=== PATIENT | female | born 1945 | race Caucasian/White ===

== ENCOUNTER 2025-05-20 12:33 | Inpatient (IN) | payer OTHER ==
[~2025-05-20] VITALS: Ht 162.6 cm; Wt 79.5 kg
--- NOTE | 2025-05-20 13:03 | ED.PDOC ---
History of Present Illness HPI Comments This is a 84 year old female ELIEA presenting to the ED with chief complaint of fall and generalized weakness. EMS reports that the patient had reportedly fell in her home 4 days ago, being unable to get up on her own due to weakness. EMS relays that the patient's daughter then called her today to check in with the patient, however, she was told that she had fallen and been on the floor, so 911 was called for assistance. Patient notes she has a full body rash at this time due to having history of contact dermatitis. Patient denies any chest pain, SOB, dizziness, N/V/D, or abdominal pain. Chief Complaint: Fall Injury Time Seen by MD: 13:01 Reviewed Notes: Nurses Notes, Audiovisual Technician Notes, Medications, Allergies Allergies: Coded Allergies: Diphenhydramine (Verified Allergy, Unknown, 05/20/25) Penicillins (Verified Allergy, Unknown, 05/20/25) Information Source: Patient, Emergency Med Personnel Mode of Arrival: EMS Severity: Moderate Timing: Days Duration: Since onset Prehospital treatment: None Past Medical History Past Medical History (Other): Contact dermatitis Surgical History: Denies all surgeries RN ANESTHESIOLOGY History: Denies all RN ANESTHESIOLOGY Hx Family History Family History: Reviewed,noncontributory to illness Social History Smoker: Non-Smoker Alcohol: Denies ETOH Use Drugs: Denies Drug Use Lives In: Home Constitutional: reports: weakness; denies: chills, diaphoresis, fatigue, fever, malaise, sweats, others EENTM: denies: blurred vision, double vision, ear bleeding, ear discharge, ear drainage, ear pain, ear ringing, eye pain, eye redness, hearing loss, mouth pain, mouth swelling, nasal discharge, nose bleeding, nose congestion, nose pain, photophobia, tearing, throat pain, throat swelling, voice changes, others Respiratory: denies: cough, hemoptysis, orthopnea, SOB at rest, shortness of breath, SOB with excertion, stridor, wheezing, others Cardiovascular: denies: chest pain, dizzy spells, diaphoresis, Dyspnea on e xertion, edema, irregular heart beat, left arm pain, lightheadedness, palpitations, PND, syncope, others Gastrointestinal: denies: abdomen distended, abdominal pain, blood streaked bowels, constipated, diarrhea, dysphagia, difficulty swallowing, hematemesis, melena, nausea, poor appetite, poor fluid intake, rectal bleeding, rectal pain, vomiting, others Genitourinary: denies: abnormal vagina bleeding, burning, dyspareunia, dysuria, flank pain, frequency, hematuria, incontinence, pain, , vagina discharge, urgency, others Neurological: denies: dizziness, fainting, headache, left sided numbness, left sided weakness, numbness, paresthesia, pre-existing deficit, right sided numbness, right sided weakness, seizure, speech problems, tingling, tremors, weakness, others Musculoskeletal: denies: back pain, gout, joint pain, joint swelling, muscle pain, muscle stiffness, neck pain, others Integumetry: reports: rash; denies: bruises, change in color, change in hair/nails, dryness, laceration, lesions, lumps, wounds, others Allergic/Immunocompromised: denies: Difficulty Healing, Frequent Infections, Hives, Itching, others Hematologic/Lymphatic: denies: anemia, blood clots, easy bleeding, easy bruising, swollen glands, others Endocrine: denies: excessive hunger, excessive sweating, excessive thirst, excessive urination, flushing, intolerance to cold, intolerance to heat, unexplained weight gain, unexplained weight loss, others Psychiatric: denies: anxiety, bipolar disorder, depression, hopeless, panic disorder, schizophrenia, sleepless, suicidal, others All Other Systems: Reviewed and Negative Physical Exam General Appearance: Moderate Distress, Normal HEENT: Normal ENT Inspection, Pharynx Normal, TMs Normal Neck: Full Range of Motion, Non-Tender, Normal, Normal Inspection Respiratory: Chest Non-Tender, Lungs Clear, No Accessory Muscle Use, No Respiratory Distress, Normal Breath Sounds Cardiovascular: No Edema, No JVD, No Murmur, No Gallop, Normal Peripheral Pulses, Regular Rate/Rhythm Breast Exam: Deferred Gastrointestinal: No Organomegaly, Non Tender, No Pulsatile Mass, Normal Bowel Sounds, Soft Genitalia: Deferred Pelvic: Deferred Rectal: Deferred Extremities: No calf tenderness, Normal capillary refill, Non-tender, Pedal edema Musculoskeletal : Apperance: Normal Neurologic: Alert, cam maker II-XII nml as Tested, No Motor Deficits, Normal Affect, Normal Mood, No Sensory Deficits Cerebellar Function: NOT DONE Reflexes: NOT DONE Skin: Dry, Normal Color, Rash (Contact dermatitis all over her body), Warm Peripheral Pulses: 3+ Radial (R), 3+ Radial (L) Lymphatic: No Adenopathy Was a procedure done? Was a procedure done?: No Differential Dx Considerations may include: Rhabdomyolysis Electrolyte imbalance X-Ray, Labs, Meds, VS Vital Signs Date Time Temp Pulse Resp B/P (MAP) Pulse Ox O2 Delivery O2 Flow Rate FiO2 05/20/25 12:40 99.7 107 15 142/73 99 99.7 Lab Test 05/20/25 13:47 Range/Units White Blood Count 12.1 H 4.4-10.8 10^3/uL Red Blood Count 4.08 4.0-5.20 10^6/uL Hemoglobin 12.6 12.2-16.2 g/dL Hematocrit 37.1 36.0-46.0 % Mean Corpuscular Volume 91.1 80.0-100.0 fL Mean Corpuscular Hemoglobin 30.8 28.0-32.0 pg Mean Corpuscular Hemoglobin Concent 33.8 32.0-36.0 g/dL Red Cell Distribution Width 14.0 11.8-14.3 % Platelet Count 272 140-450 10^3/uL Mean Platelet Volume 7.2 6.9-10.8 fL Neutrophils (%) (Auto) 77.8 37.0-80.0 % Lymphocytes (%) (Auto) 8.2 L 10.0-50.0 % Monocytes (%) (Auto) 11.7 0.0-12.0 % Eosinophils (%) (Auto) 2.1 0.0-7.0 % Basophils (%) (Auto) 0.2 0.0-2.0 % Neutrophils # (Auto) 9.4 H 1.6-8.6 10 ^3/uL Lymphocytes # (Auto) 1.0 0.4-5.4 10 ^3/uL Monocytes # (Auto) 1.4 H 0-1.3 10 ^3/uL Eosinophils # (Auto) 0.3 0-0.8 10 ^3/uL Basophils # (Auto) 0 0-0.2 10 ^3/uL Nucleated Red Blood Cells 0.0 % Sodium Level 140 136-145 mmol/L Potassium Level 3.7 3.5-5.1 mmol/L Chloride Level 102 98-107 mmol/L Carbon Dioxide Level 29 20-31 mmol/L Anion Gap 9 5-15 Blood Urea Nitrogen 10 9-23 mg/dL Creatinine 0.71 0.550-1.02 mg/dL Glomerular Filtration Rate Calc 85 >90 mL/min BUN/Creatinine Ratio 14.1 10.0-20.0 Serum Glucose 145 H 74-106 mg/dL Calcium Level 8.4 L 8.7-10.4 mg/dL Creatine Kinase 3023 H 34-145 U/L Troponin I High Sensitivity 10 </=34 ng/L Patient alert. Vitals stable. Been on the floor for a long time. Answering all questions. Rule out rhabdomyolysis. Establish intravenous access. Was given fluids. Denies any symptoms. Explained to the patient. Continue monitoring. Time of 1ST Reevaluation: 14:00 Reevaluation 1ST: Unchanged Patient Education/Counseling: Diagnosis, Treatment Family Education/Counseling: No Family Present SEPSIS Sepsis Screen Physician Orders Urinalysis (05/20/25 13:17) Sodium Chloride 0.9% (05/20/25 13:30) Sodium Bicarb 50meq/50ml Vial (05/20/25 15:00) Vital Signs Date Time Temp Pulse Resp B/P (MAP) Pulse Ox O2 Delivery O2 Flow Rate FiO2 05/20/25 12:40 99.7 107 15 142/73 99 99.7 Laboratory Tests Test 05/20/25 13:47 White Blood Count 12.1 10^3/uL (4.4-10.8) H Departure 1 Departure Time of Disposition: 13:52 Impression: Primary Impression: Rhabdomyolysis Qualified Codes: M62.82 - Rhabdomyolysis Additional Impression: Contact dermatitis Qualified Codes: L25.9 - Unspecified contact dermatitis, unspecified cause Disposition: 09 ADMITTED INPATIENT Admit to: Med Surg Condition: Guarded Critical Care Note Critical Care Time?: Yes (90 min-critical care time only) Critical care comment: Sodium bicarbonate Stability Stability form required: No Heart Score Heart Score: Heart Score Response (Comments) Value History N/A 0 EKG N/A 0 Age N/A 0 Risk Factors N/A 0 Troponin N/A 0 Total 0 I personally scribed for MICHELLE MARIN MD ([email or web address]) on 05/20/25 at 13:03. Electronically submitted by Jose Antonio Yeung ([email or web address]). MICHELLE MARIN MD May 20, 2025 13:03
[2025-05-20 14:05] LABS: Hematocrit 37.1 % (36.0-46.0); Hemoglobin 12.6 g/dL (12.2-16.2); Mean Corpuscular Hemoglobin 30.8 pg (28.0-32.0); Mean Corpuscular Volume 91.1 fL (80.0-100.0); Nucleated Red Blood Cells % 0.0 %
[2025-05-20 14:10] LABS: Chloride 102 mmol/L (98-107); Potassium 3.7 mmol/L (3.5-5.1); Sodium 140 mmol/L (136-145)
[2025-05-20 14:11] LABS: Anion Gap 9 (5-15); Carbon Dioxide 29 mmol/L (20-31)
[2025-05-20 14:16] LABS: BUN/Creatinine Ratio 14.1 (10.0-20.0); Blood Urea Nitrogen 10 mg/dL (9-23)
[2025-05-20 14:17] LABS: Calcium 8.4 mg/dL (8.7-10.4); Glucose 145 mg/dL (74-106)
[2025-05-20 14:30] LABS: Creatine Kinase IFCC 3023 U/L (34-145)
[2025-05-20] MEDS: SODIUM BICARB 8.4% 50Meq/50ml SYR Vial IV ONE (15:00)
[2025-05-20] MEDS ORDERED: MORPHINE SULFATE INJ 2 MG/ml SYRG IV PRN (18:00)
[2025-05-20] MEDS ORDERED: NITROGLYCERIN 0.4 MG SL TAB SL PRN (18:00)
[2025-05-20] MEDS ORDERED: ONDANSETRON HCL 4 MG/2 ML VIAL IV PRN (18:00)
[2025-05-20] MEDS: SODIUM CHLORIDE 0.9% 1,000 ML IV SCH (18:15)
--- NOTE | 2025-05-20 20:32 | DVH ---
BILATERAL LOWER EXTREMITY VENOUS DOPPLER ULTRASOUND CLINICAL HISTORY: LE edema TECHNIQUE: Grayscale ultrasound with compression, color Doppler flow imaging with pulsed duplex sonog jona of the bilateral lower extremity deep venous system from the common femoral veins through the p opliteal veins is performed. COMPARISON: None FINDINGS: Right common femoral vein: Negative. Right greater saphenous vein: Negative. Right deep femoral vein: Negative. Right femoral vein: Negative. Right popliteal vein: Negative. Left common femoral vein: Negative. Left greater saphenous vein: Negative. Left deep femoral vein: Negative. Left femoral vein: Negative. Left popliteal vein: Negative. Other: Visualized bilateral popliteal trifurcation and posterior tibial veins demonstrate color flow. IMPRESSION: No sonographic evidence of deep venous thrombosis in either lower extremity at this time.
[2025-05-20 23:08] VITALS: PULSE 96; RESP 16; O2SAT 95
[2025-05-20] MEDS: diphenhdrAMINE HCL 50 MG/1 ML VL IV ONE (23:13)
[2025-05-20] MEDS: SODIUM CHLORIDE 0.9% 1,000 ML IV ONE ×2 (23:14→23:23)
--- NOTE | 2025-05-20 23:21 | DVHINCON2 ---
Date of service: May 20, 2025 Referring Physician Rogelio Reason for Consultation LE edema History of Present Illness This is a 79 year old female with a PMH of contact dermatitis who was brought in by EMS with complaints of fall and generalized weakness. EMS reports that the patient had reportedly fell in her home 4 days ago, being unable to get up on her own due to weakness. EMS relays that the patient's daughter then called her today to check in with the patient, however, she was told that she had fallen and been on the floor, so 911 was called for assistance. Patient notes she has a full body rash at this time due to having history of contact dermatitis. WBC 12.1, creatinine kinase 3023. Troponin is negative. Patient was admitted to the hospital. I am asked to consult on this patient. Allergies: Coded Allergies: Diphenhydramine (Verified Allergy, Unknown, 05/20/25) Penicillins (Verified Allergy, Unknown, 05/20/25) Current Medications Current Medications Medications (Trade) Dose Ordered Sig/Karmen Route PRN Reason Start Time Stop Time Status Last Admin Acetaminophen (Tylenol Tablet) 325 mg Q4HP PRN PO MILD PAIN (1-3 PAIN SCALE) 05/20/25 18:00 Ondansetron HCl (Zofran) 4 mg Q4HP PRN IV NAUSEA / VOMITING 05/20/25 18:00 Enoxaparin Sodium (Lovenox) 40 mg DAILY SC 05/21/25 10:00 Nitroglycerin (Ntrostat Sublingual) 0.4 mg Q5MINP PRN SL FOR CHEST PAIN 05/20/25 18:00 Morphine Sulfate 2 mg Q30M PRN IV FOR CHEST PAIN 05/20/25 18:00 Methylprednisolone Sodium Succinate (Solu Medrol) 125 mg DAILY IV 05/21/25 10:00 Sodium Chloride 1,000 ml @ 75 mls/hr [id number] IV 05/20/25 18:15 Review of Systems Constitutional: reports: weakness; denies: chills, diaphoresis, fatigue, fever, malaise, sweats, others EENTM: denies: blurred vision, double vision, ear bleeding, ear discharge, ear drainage, ear pain, ear ringing, eye pain, eye redness, hearing loss, mouth pain, mouth swelling, nasal discharge, nose bleeding, nose congestion, nose pain, photophobia, tearing, throat pain, throat swelling, voice changes, others Respiratory: denies: cough, hemoptysis, orthopnea, SOB at rest, shortness of breath, SOB with excertion, stridor, wheezing, others Cardiovascular: denies: chest pain, dizzy spells, diaphoresis, Dyspnea on exertion, edema, irregular heart beat, left arm pain, lightheadedness, palpitations, PND, syncope, others Gastrointestinal: denies: abdomen distended, abdominal pain, blood streaked bowels, constipated, diarrhea, dysphagia, difficulty swallowing, hematemesis, melena, nausea, poor appetite, poor fluid intake, rectal bleeding, rectal pain, vomiting, others Genitourinary: denies: abnormal vagina bleeding, burning, dyspareunia, dysuria, flank pain, frequency, hematuria, incontinence, pain, , vagina discharge, urgency, others Neurological: denies: dizziness, fainting, headache, left sided numbness, left sided weakness, numbness, paresthesia, pre-existing deficit, right sided numbness, right sided weakness, seizure, speech problems, tingling, tremors, weakness, others Musculoskeletal: denies: back pain, gout, joint pain, joint swelling, muscle pa in, muscle stiffness, neck pain, others Integumetry: reports: rash; denies: bruises, change in color, change in hair/nails, dryness, laceration, lesions, lumps, wounds, others Allergic/Immunocompromised: denies: Difficulty Healing, Frequent Infections, Hives, Itching, others Hematologic/Lymphatic: denies: anemia, blood clots, easy bleeding, easy bruising, swollen glands, others Endocrine: denies: excessive hunger, excessive sweating, excessive thirst, excessive urination, flushing, intolerance to cold, intolerance to heat, un explained weight gain, unexplained weight loss, others Psychiatric: denies: anxiety, bipolar disorder, depression, hopeless, panic disorder, schizophrenia, sleepless, suicidal, others All Other Systems: Reviewed and Negative Vital Signs Vital Signs Date Time Temp Pulse Resp B/P (MAP) Pulse Ox O2 Delivery O2 Flow Rate FiO2 05/20/25 23:08 96 16 95 Room Air* 0 21 05/20/25 23:01 98.8 126/70 (88) 98.8 Physical Exam GENERAL: Alert and oriented x 3. No acute distress. EYES: PERRL, EOMI. Anicteric. HENT: Moist mucous membranes. LUNGS: Clear to auscultation bilaterally. CARDIOVASCULAR: Regular rate and rhythm. ABDOMEN: Soft, non-tender and non-distended. EXTREMITIES: BLE edema. NEUROLOGIC: No focal neurological deficits. SKIN: Warm, dry. Contact dermatitis all over her body. Labs/Diagnostic Data Labs Test 05/20/25 13:47 Range/Units White Blood Count 12.1 H 4.4-10.8 10^3/uL Red Blood Count 4.08 4.0-5.20 10^6/uL Hemoglobin 12.6 12.2-16.2 g/dL Hematocrit 37.1 36.0-46.0 % Mean Corpuscular Volume 91.1 80.0-100.0 fL Mean Corpuscular Hemoglobin 30.8 28.0-32.0 pg Mean Corpuscular Hemoglobin Concent 33.8 32.0-36.0 g/dL Red Cell Distribution Width 14.0 11.8-14.3 % Platelet Count 272 140-450 10^3/uL Mean Platelet Volume 7.2 6.9-10.8 fL Neutrophils (%) (Auto) 77.8 37.0-80.0 % Lymphocytes (%) (Auto) 8.2 L 10.0-50.0 % Monocytes (%) (Auto) 11.7 0.0-12.0 % Eosinophils (%) (Auto) 2.1 0.0-7.0 % Basophils (%) (Auto) 0.2 0.0-2.0 % Neutrophils # (Auto) 9.4 H 1.6-8.6 10 ^3/uL Lymphocytes # (Auto) 1.0 0.4-5.4 10 ^3/uL Monocytes # (Auto) 1.4 H 0-1.3 10 ^3/uL Eosinophils # (Auto) 0.3 0-0.8 10 ^3/uL Basophils # (Auto) 0 0-0.2 10 ^3/uL Nucleated Red Blood Cells 0.0 % Sodium Level 140 136-145 mmol/L Potassium Level 3.7 3.5-5.1 mmol/L Chloride Level 102 98-107 mmol/L Carbon Dioxide Level 29 20-31 mmol/L Anion Gap 9 5-15 Blood Urea Nitrogen 10 9-23 mg/dL Creatinine 0.71 0.550-1.02 mg/dL Glomerular Filtration Rate Calc 85 >90 mL/min BUN/Creatinine Ratio 14.1 10.0-20.0 Serum Glucose 145 H 74-106 mg/dL Calcium Level 8.4 L 8.7-10.4 mg/dL Creatine Kinase 3023 H 34-145 U/L Troponin I High Sensitivity 10 </=34 ng/L Assessment Rhabdomyolysis. Contact dermatitis. BLE edema. Plan/Recommendation I agree with your ongoing assessment and care of plan. Echocardiogram. DVT prophylactics. Nitro SL. Morphine for pain management. Additional plan as per the hospital course. A total of 45 minutes was spent reviewing the patient record, examining the patient, making a diagnostic and therapeutic plan, discussing this plan with medical personnel, following up on diagnostic studies and following the patient for clinical stability excluding any and all procedures. At least 50% of this time was spent in direct, [id number] contact. Plan discussed with: Patient CRISTOPHER ESPAÑA MD May 20, 2025 23:21
[2025-05-21] VITALS (8 sets, daily range): BP systolic 110–154; BP diastolic 58–89; PULSE 78–100; RESP 17–20; TEMP 97.8–98.7; O2SAT 93–98
[2025-05-21] MEDS: methylPREDNISolone SOD SUCC 125 MG/2 ML VL IV ONE (02:06)
[2025-05-21 07:04] LABS: Hematocrit 35.9 % (36.0-46.0); Hemoglobin 12.2 g/dL (12.2-16.2); Mean Corpuscular Hemoglobin 31.4 pg (28.0-32.0); Mean Corpuscular Volume 92.0 fL (80.0-100.0)
[2025-05-21 07:14] LABS: Albumin 3.4 g/dL (3.2-4.8); Alkaline Phosphatase 63 U/L (46-116); Anion Gap 10 (5-15); BUN/Creatinine Ratio 22.8 (10.0-20.0); Bilirubin, Total 0.7 mg/dL (0.2-1.0); Blood Urea Nitrogen 18 mg/dL (9-23); Carbon Dioxide 29 mmol/L (20-31); Chloride 103 mmol/L (98-107); Potassium 4.3 mmol/L (3.5-5.1); Sodium 142 mmol/L (136-145)
[2025-05-21 07:24] LABS: Alanine Aminotransferase 77 U/L (7-40); Calcium 8.5 mg/dL (8.7-10.4); Glucose 258 mg/dL (74-106); Total Protein 5.6 g/dL (5.7-8.2)
[2025-05-21 08:42] LABS: Total Cells Counted 100.0 (100)
--- NOTE | 2025-05-21 09:06 | DVHHP2 ---
Admitting Diagnosis: Rhabdomyolysis History of Present Illness Patient is a 79-year-old female with no established medical care who was brought in after being found down by paramedics in her house. Patient was apparently down for approximately 3 to 4 days. History was also obtained from the daughter who notes that she is estranged from her mother and notes that the patient lives alone. Patient had bedside is alert able to engage in history but complains of significant weakness. She has a whole body rash that is red and notes that this has been present for more than a month. She has not seek medical attention for this issue. Patient presented with vitals within normal limits. CBC was notable for leukocytosis of 12.1 with chemistry panel notable for CK of 3023. Renal function was within normal limits. Patient was started on IV fluid h ydration and steroids for her rash. She was admitted for further medical management. Patient Family History: FH: lung cancer G8 MOTHER Malignant melanoma G8 FATHER Allergies: Coded Allergies: Diphenhydramine (Verified Allergy, Unknown, 05/20/25) Penicillins (Verified Allergy, Unknown, 05/20/25) Home Meds No Active Prescriptions or Reported Meds Current Medications Current Medications Medications (Trade) Dose Ordered Sig/Karmen Route PRN Reason Start Time Stop Time Status Last Admin Acetaminophen (Tylenol Tablet) 325 mg Q4HP PRN PO MILD PAIN (1-3 PAIN SCALE) 05/20/25 18:00 05/21/25 10:11 Ondansetron HCl (Zofran) 4 mg Q4HP PRN IV NAUSEA / VOMITING 05/20/25 18:00 Enoxaparin Sodium (Lovenox) 40 mg DAILY SC 05/21/25 10:00 Nitroglycerin (Ntrostat Sublingual) 0.4 mg Q5MINP PRN SL FOR CHEST PAIN 05/20/25 18:00 Morphine Sulfate 2 mg Q30M PRN IV FOR CHEST PAIN 05/20/25 18:00 Methylprednisolone Sodium Succinate (Solu Medrol) 125 mg DAILY IV 05/21/25 10:00 05/21/25 10:10 Sodium Chloride 1,000 ml @ 75 mls/hr [id number] IV 05/20/25 18:15 05/20/25 18:15 Review of Systems General: Weakness Vital Signs Vital Signs Date Time Temp Pulse Resp B/P (MAP) Pulse Ox O2 Delivery O2 Flow Rate FiO2 05/21/25 09:00 97.8 82 19 110/59 (76) 93 97.8 05/21/25 02:19 Room Air* 0 21 Physical Exam General appearance: No acute distress Respiratory: Lungs clear to auscultation. No wheezing, crackles Cardiovascular: Regular rate and rhythm, no murmurs. No edema Abdomen: Soft, nondistended, nontender, bowel sounds present MSK: Normal range of motion. Skin: Red, maculopapular rash Neuro: Alert, no neurological deficits Psych: Appropriate mood and affect. SEPSIS Sepsis Screen Date sepsis recognized/suspect: May 20, 2025 Time Sepsis recognized/suspect: 2307 Recent Procedure: No On Antibiotic Therapy: No Respiratory Rate >20: No Heart Rate >90: No Temp<36 C (96.8 F) or >38.3 C: No SBP <90 or MAP <65 mmHG: No New Acute Mental Status Change: No Is the patient on CPAP, BIPAP,: No Physician Orders Urinalysis (05/20/25 13:17) Admit (05/20/25 18:00) Code Status (05/20/25 18:00) Acetaminophen Tablet (Tylenol Tablet) (05/20/25 18:00) Ondansetron Hcl (Zofran) (05/20/25 18:00) Enoxaparin Sodium (Lovenox) (05/21/25 10:00) Cardiac Diet-2gna,Lofat,Lochol (05/20/25 Dinner) Pt Request For Service (05/20/25 18:00) Nitroglycerin Sublingual (Ntrostat Subli (05/20/25 18:00) Morphine Sulfate Injection (05/20/25 18:00) Stat Ekg For Chest Pain (05/20/25 18:00) Notify Md Of Changes From Base (05/20/25 18:00) Slitter Service And Setter For 24 Hours (05/20/25 18:00) Emergency Dysrhythmia Protocol (05/20/25 18:00) Rhythm Strips Once Every Shift (05/20/25 18:00) Oxygen By Nasal Cannula (05/20/25 18:00) Bilat Lower Dvt (05/20/25 18:04) Methylprednisolone Sod Succ (Solu Medrol (05/21/25 10:00) Sodium Chloride 0.9% (05/20/25 18:15) * Cardiology Consult (05/20/25 18:11) *Dr. Torres [facility] (05/20/25 19:02) * Supervisor Garage Consult (05/21/25 02:46) Urinalysis (05/21/25 08:36) Strict I & O QSHIFT (05/21/25 08:39) Vital Signs Date Time Temp Pulse Resp B/P (MAP) Pulse Ox O2 Delivery O2 Flow Rate FiO2 05/21/25 09:00 97.8 82 19 110/59 (76) 93 97.8 05/21/25 05:00 98.3 92 17 132/70 (90) 95 98.3 05/21/25 02:19 Room Air* 0 21 05/21/25 01:37 98.7 99 17 113/58 (76) 95 98.7 05/20/25 23:08 96 16 95 Room Air* 0 21 05/20/25 23:01 98.8 96 16 126/70 (88) 95 98.8 05/20/25 12:40 99.7 107 15 142/73 99 99.7 Laboratory Tests Test 05/20/25 13:47 05/21/25 06:19 White Blood Count 12.1 10^3/uL (4.4-10.8) H 9.7 10^3/uL (4.4-10.8) Medications Medications Dose Ordered Sig/Karmen Route Start Time Stop Time Status Last Admin Dose Admin Methylprednisolone Sodium Succinate 125 mg DAILY IV 05/21/25 10:00 05/21/25 10:10 Results Labs Test 05/21/25 06:19 05/20/25 13:47 Range/Units White Blood Count 9.7 4.4-10.8 10^3/uL Red Blood Count 3.90 L 4.0-5.20 10^6/uL Hemoglobin 12.2 12.2-16.2 g/dL Hematocrit 35.9 L 36.0-46.0 % Mean Corpuscular Volume 92.0 80.0-100.0 fL Mean Corpuscular Hemoglobin 31.4 28.0-32.0 pg Mean Corpuscular Hemoglobin Concent 34.1 32.0-36.0 g/dL Red Cell Distribution Width 14.1 11.8-14.3 % Platelet Count 248 140-450 10^3/uL Mean Platelet Volume 7.3 6.9-10.8 fL Neutrophils (%) (Auto) 37.0-80.0 % Lymphocytes (%) (Auto) 10.0-50.0 % Monocytes (%) (Auto) 0.0-12.0 % Basophils (%) (Auto) 0.0-2.0 % Neutrophils # (Auto) 1.6-8.6 10 ^3/uL Lymphocytes # (Auto) 0.4-5.4 10 ^3/uL Monocytes # (Auto) 0-1.3 10 ^3/uL Differential Total Cells Counted 100.0 100 Neutrophils % (Manual) 91 H 37.0-80.0 Band Neutrophils % (Manual) 0 Lymphocytes % (Manual) 7 L 10.0-50.0 Monocytes % (Manual) 2 0-12 Eosinophils % (Manual) 0 0-7 Basophils % (Manual) 0 0.0-2.0 Metamyelocytes % (manual) 0 Myelocytes % (Manual) 0 Promyelocytes % (Manual) 0 Blast Cells % (Manual) 0 Reactive Lymphocytes 0 Platelet Estimate Adequate Sodium Level 142 136-145 mmol/L Potassium Level 4.3 3.5-5.1 mmol/L Chloride Level 103 98-107 mmol/L Carbon Dioxide Level 29 20-31 mmol/L Anion Gap 10 5-15 Blood Urea Nitrogen 18 9-23 mg/dL Creatinine 0.79 0.550-1.02 mg/dL Glomerular Filtration Rate Calc 77 >90 mL/min BUN/Creatinine Ratio 22.8 H 10.0-20.0 Serum Glucose 258 H 74-106 mg/dL Calcium Level 8.5 L 8.7-10.4 mg/dL Phosphorus Level 3.7 2.4-5.1 mg/dL Magnesium Level 2.1 1.6-2.6 mg/dL Total Bilirubin 0.7 0.2-1.0 mg/dL Aspartate Amino Transferase (AST) 132 H 13-40 U/L Alanine Aminotransferase (ALT) 77 H 7-40 U/L Alkaline Phosphatase 63 46-116 U/L Creatine Kinase 1671 H 34-145 U/L Total Protein 5.6 L 5.7-8.2 g/dL Albumin 3.4 3.2-4.8 g/dL Eosinophils (%) (Auto) 2.1 0.0-7.0 % Eosinophils # (Auto) 0.3 0-0.8 10 ^3/uL Basophils # (Auto) 0 0-0.2 10 ^3/uL Nucleated Red Blood Cells 0.0 % Troponin I High Sensitivity 10 </=34 ng/L Admitting Diagnosis: 1. Rhabdomyolysis 2' Diagnosis/Comorbidities 2. Dermatitis 3. LE edema Plan - Nephrology consulted for rhabdomyolysis. Patient started on IV fluids. - Cardiology consulted to evaluate for underlying CHF given lower extremity edema. Ultrasound negative for DVT. TTE pending - Solu-Medrol 125 mg IV daily for dermatitis rash. Concern for dermatomyositis. -PT eval ordered. Discussed need for SNF for patient if strength does not return. Patient expressed resistance to this idea and insists on returning home. - Plan of care discussed with daughter. Updated on course of events. -Daily CBC and BMP - Full code Plan discussed with: Patient LINGSAIRANAOMIE Horner DO May 21, 2025 09:06
[2025-05-21 09:52] LABS: Magnesium 2.1 mg/dL (1.6-2.6)
[2025-05-21] MEDS: ENOXAPARIN SOD 40 MG/0.4 ML SYRINGE SC SCH (10:00)
[2025-05-21] MEDS: methylPREDNISolone SOD SUCC 125 MG/2 ML VL IV SCH (10:10)
[2025-05-21] MEDS: ACETAMINOPHEN 325 MG TAB PO PRN (10:11)
--- NOTE | 2025-05-21 19:21 | DVHCONRES ---
Date Seen: May 21, 2025 Resident Creating Document: MARY MIMS RESIDENT Reason for Consultation Rhabdomyolysis with need for bicarb drip History of Present Illness 79-year-old female with past medical history of generalized body rash ( started four weeks ago), presented with complaints of generalized weakness and fall. Patient mentioned that patient had a fall on Tuesday where she was stuck between furniture. Patient has started having muscle aches and back and legs and decided to come to the hospital. Patient mentioned that she had a generalized body rash that started four weeks ago. On presenting to the ER, patient was started on IV fluids as her creatinine kinase was elevated. Patient denied any complaint of fever, chills, nausea, vomiting, abdominal pain. Denied any recreational drug intake including alcohol. Denied any complaints of decreased urine output, dysuria. Past medical history Generalized rash started four years ago, diagnosed as contact dermatitis Past surgical history Denied recent surgery Family history Nonsignificant Social history Denied smoking, alcohol, marijuana or any other drug intake Medication history No active meds Allergic history Diphenhydramine, penicillin Past Medical History As described in the HPI Past Surgical History As described in the HPI Family History: FH: lung cancer G8 MOTHER Malignant melanoma G8 FATHER Allergies: Coded Allergies: Diphenhydramine (Verified Allergy, Unknown, 05/20/25) Penicillins (Verified Allergy, Unknown, 05/20/25) Home Meds No Active Prescriptions or Reported Meds Current Medications Current Medications Medications (Trade) Dose Ordered Sig/Karmen Route PRN Reason Start Time Stop Time Status Last Admin Enoxaparin Sodium (Lovenox) 40 mg DAILY SC 05/21/25 10:00 Methylprednisolone Sodium Succinate (Solu Medrol) 125 mg DAILY IV 05/21/25 10:00 05/21/25 10:10 Review of Systems As described in the HPI Vital Signs Vital Signs Date Time Temp Pulse Resp B/P (MAP) Pulse Ox O2 Delivery O2 Flow Rate FiO2 05/21/25 17:00 98.3 95 19 120/70 (87) 94 98.3 05/21/25 08:00 Room Air* 0 21 Physical Exam Examination General Appearance: Alert, Oriented X3, Cooperative, No acute distress HEENT: EOMI Respiratory: Clear to auscultation, Normal air movement Cardiovascular: Regular rate, Normal S1, Normal S2 Abdominal: Normal bowel sounds Extremities: No cyanosis, No edema, Normal pulses, No tenderness/swelling Skin: Generalized body rash present on chest, thighs, knees Neuro: Normal speech and tone Labs/Diagnostic Data Labs Test 05/21/25 06:19 05/20/25 13:47 Range/Units White Blood Count 9.7 4.4-10.8 10^3/uL Red Blood Count 3.90 L 4.0-5.20 10^6/uL Hemoglobin 12.2 12.2-16.2 g/dL Hematocrit 35.9 L 36.0-46.0 % Mean Corpuscular Volume 92.0 80.0-100.0 fL Mean Corpuscular Hemoglobin 31.4 28.0-32.0 pg Mean Corpuscular Hemoglobin Concent 34.1 32.0-36.0 g/dL Red Cell Distribution Width 14.1 11.8-14.3 % Platelet Count 248 140-450 10^3/uL Mean Platelet Volume 7.3 6.9-10.8 fL Neutrophils (%) (Auto) 37.0-80.0 % Lymphocytes (%) (Auto) 10.0-50.0 % Monocytes (%) (Auto) 0.0-12.0 % Basophils (%) (Auto) 0.0-2.0 % Neutrophils # (Auto) 1.6-8.6 10 ^3/uL Lymphocytes # (Auto) 0.4-5.4 10 ^3/uL Monocytes # (Auto) 0-1.3 10 ^3/uL Differential Total Cells Counted 100.0 100 Neutrophils % (Manual) 91 H 37.0-80.0 Band Neutrophils % (Manual) 0 Lymphocytes % (Manual) 7 L 10.0-50.0 Monocytes % (Manual) 2 0-12 Eosinophils % (Manual) 0 0-7 Basophils % (Manual) 0 0.0-2.0 Metamyelocytes % (manual) 0 Myelocytes % (Manual) 0 Promyelocytes % (Manual) 0 Blast Cells % (Manual) 0 Reactive Lymphocytes 0 Platelet Estimate Adequate Sodium Level 142 136-145 mmol/L Potassium Level 4.3 3.5-5.1 mmol/L Chloride Level 103 98-107 mmol/L Carbon Dioxide Level 29 20-31 mmol/L Anion Gap 10 5-15 Blood Urea Nitrogen 18 9-23 mg/dL Creatinine 0.79 0.550-1.02 mg/dL Glomerular Filtration Rate Calc 77 >90 mL/min BUN/Creatinine Ratio 22.8 H 10.0-20.0 Serum Glucose 258 H 74-106 mg/dL Calcium Level 8.5 L 8.7-10.4 mg/dL Phosphorus Level 3.7 2.4-5.1 mg/dL Magnesium Level 2.1 1.6-2.6 mg/dL Total Bilirubin 0.7 0.2-1.0 mg/dL Aspartate Amino Transferase (AST) 132 H 13-40 U/L Alanine Aminotransferase (ALT) 77 H 7-40 U/L Alkaline Phosphatase 63 46-116 U/L Creatine Kinase 1671 H 34-145 U/L Total Protein 5.6 L 5.7-8.2 g/dL Albumin 3.4 3.2-4.8 g/dL Eosinophils (%) (Auto) 2.1 0.0-7.0 % Eosinophils # (Auto) 0.3 0-0.8 10 ^3/uL Basophils # (Auto) 0 0-0.2 10 ^3/uL Nucleated Red Blood Cells 0.0 % Troponin I High Sensitivity 10 </=34 ng/L Assessment Assessment # elevated creatinine kinase ? Rhabdomyolysis ? Dermatomyositis/polymyositis Creatinine kinase 3027, 1671 # generalized body rash ? Autoimmune etiology -Started four weeks ago # fall # generalized weakness # transaminitis # lower extremity edema, resolved Plan/Recommendation Plan Strict input output Monitor kidney function and electrolytes including calcium, potassium, magnesium and phosphate Patient initially received IV fluids at 150 cc/hour and was switched to 75 cc/hour Continue IV fluids at 75 cc/hour Patient does not need IV bicarb at this point. Ordered Urinalysis, awaiting results Ordered VIC with comprehensive panel, complement C3 and C4, ESR, CRP, serum aldolase and ANCA panel Ordered thyroid function test and cortisol pt is currently IV methylprednisolone 125 daily for possible dermatitis started by the primary team Consider outpatient derm eval Case discussion with Dr. Morgan Plan discussed with: Patient, Other MARY MIMS May 21, 2025 19:21 BRIAN MORGAN MD May 22, 2025 15:18
--- NOTE | 2025-05-21 21:36 | DVHSR ---
APPROVED REPORT EXAM: Two-dimensional and M-mode echocardiogram with Doppler and color Doppler. Blood Pressure: 132/70 mmHg INDICATION LE edema rule out CHF RISK FACTORS Height: 64, Weight: 175 DIMENSIONS LVDd3.9 (3.8-5.7cm)LA (2D)4.0 (1.9-4.0cm)Aortic Root3.2 (2.0-3.7cm) LVDs2.7 (2.5-4.0cm)LA (MM) (1.9-4.0cm)Aortic Cusp Exc1.8 (1.5-2.0cm) EF (%) 57.0 (55-70%)Rt. Atrium (1.9-4.0cm)Asc. Aorta cm IVSd1.0 (0.7-1.1cm)RV (D) (1.8-2.4cm) PWd1.0 (0.7-1.1cm) Mitral Valve MitralMitral Stenosis E wave0.99m/sMV Mean GR.mmHg A wave1.14m/sMV Peak GR.mmHg E/A ratio0.92D MVAcm2 DECEL [id number] 1/2 Oxlr02uz IVRTmsDop MVA5.06cm2 Aortic Valve Aortic ValveAortic Stenosis V11.02m/Edward Mean GR.6mmHg V21.67m/Edward Peak GR.11mmHg LVOT Diameter1.9 (1.8-2.4cm)Doppler AVA1.73cm2 Pulmonic Valve V20.97m/s Tricuspid Valve TR Velocity2.73m/s [id number] Other Information Technically limited study due to patient laying flat on her back during exam. Patient kept talking d uring exam. Conclusion LV EF IS 70% AND IS NORMAL MILD LVH AND MILD LV DIASTOLIC DYSFUNCTION NORMAL VALVES NO EFFUSION NORMAL RV FUNCTION
--- NOTE | 2025-05-21 22:47 | DVHPN2 ---
Progress Note - Dictate Date Seen: May 21, 2025 Medical Necessity Reason Pt with a Central, PICC or Fol: No Subjective Patient was seen and evaluated in follow up. Patient is complaining of generalized pain. Creatinine kinase 1671. TSH is WNL. AST and ALT minimally elevated. Echocardiogram shows an EF of 70%. vital signs Vital Sign Date Time Temp Pulse Resp B/P (MAP) Pulse Ox O2 Delivery O2 Flow Rate FiO2 05/21/25 17:00 98.3 95 19 120/70 (87) 94 98.3 05/21/25 08:00 Room Air* 0 21 Total Intake and Output 05/20/25 05/20/25 05/21/25 15:00 23:00 07:00 Intake Total 0 ml Balance 0 ml medications Current Medications Medications Dose Ordered Sig/Karmen Route Start Time Stop Time Status Last Admin Dose Admin Acetaminophen 325 mg Q4HP PRN PO 05/20/25 18:00 05/21/25 18:38 325 MG Ondansetron HCl 4 mg Q4HP PRN IV 05/20/25 18:00 Enoxaparin Sodium 40 mg DAILY SC 05/21/25 10:00 Nitroglycerin 0.4 mg Q5MINP PRN SL 05/20/25 18:00 Morphine Sulfate 2 mg Q30M PRN IV 05/20/25 18:00 Methylprednisolone Sodium Succinate 125 mg DAILY IV 05/21/25 10:00 05/21/25 10:10 125 MG Sodium Chloride 1,000 ml @ 75 mls/hr [id number] IV 05/20/25 18:15 05/21/25 07:35 75 MLS/HR objective GENERAL: Alert and oriented x 3. No acute distress. EYES: PERRL, EOMI. Anicteric. HENT: Moist mucous membranes. LUNGS: Clear to auscultation bilaterally. CARDIOVASCULAR: Regular rate and rhythm. ABDOMEN: Soft, non-tender and non-distended. EXTREMITIES: BLE edema. NEUROLOGIC: No focal neurological deficits. SKIN: Warm, dry. Contact dermatitis all over her body. laboratory and microbiology Laboratory Tests 05/21/25 06:19 Test 05/21/25 06:19 Range/Units Serum Glucose 258 H 74-106 mg/dL Problem List Rhabdomyolysis. Contact dermatitis. BLE edema. Assessment/Plan Continued all current supportive medical care. DVT prophylactics. Morphine for pain management. Nitro SL. Additional plan as per the hospital course. Plan discussed with: Patient CRISTOPHER ESPAÑA MD May 21, 2025 22:47
[2025-05-22] VITALS (7 sets, daily range): BP systolic 101–143; BP diastolic 56–82; PULSE 47–95; RESP 18–20; TEMP 97.7–99; O2SAT 93–98
[2025-05-22 08:32] LABS: Hematocrit 33.1 % (36.0-46.0); Hemoglobin 11.4 g/dL (12.2-16.2); Mean Corpuscular Hemoglobin 31.1 pg (28.0-32.0); Mean Corpuscular Volume 90.6 fL (80.0-100.0); Nucleated Red Blood Cells % 0.1 %
[2025-05-22 08:52] LABS: Albumin 3.6 g/dL (3.2-4.8); Alkaline Phosphatase 63 U/L (46-116); Anion Gap 8 (5-15); BUN/Creatinine Ratio 27.6 (10.0-20.0); Bilirubin, Total 0.5 mg/dL (0.2-1.0); Blood Urea Nitrogen 21 mg/dL (9-23); Carbon Dioxide 29 mmol/L (20-31); Chloride 103 mmol/L (98-107); Magnesium 2.3 mg/dL (1.6-2.6); Sodium 140 mmol/L (136-145); Total Protein 6.0 g/dL (5.7-8.2)
[2025-05-22 08:54] LABS: Alanine Aminotransferase 74 U/L (7-40); Calcium 8.6 mg/dL (8.7-10.4); Creatine Kinase IFCC 975 U/L (34-145); Glucose 222 mg/dL (74-106); Potassium 3.4 mmol/L (3.5-5.1)
--- NOTE | 2025-05-22 10:32 | DVHPN2 ---
Progress Note - Dictate Date Seen: May 22, 2025 Medical Necessity Reason Pt with a Central, PICC or Fol: No Subjective Discussed need for SNF placement for PT with patient. Patient persistently refused stating she wants to go home. Patient has an APS report filed and per daughter, house is in very poor condition due to hoarding. vital signs Vital Sign Date Time Temp Pulse Resp B/P (MAP) Pulse Ox O2 Delivery O2 Flow Rate FiO2 05/22/25 08:40 98.1 80 18 105/57 (73) 97 98.1 05/21/25 20:00 Room Air* 0 21 Total Intake and Output 05/21/25 05/21/25 05/22/25 15:00 23:00 07:00 Intake Total 1600 ml 400 ml Balance 1600 ml 400 ml medications Current Medications Medications Dose Ordered Sig/Karmen Route Start Time Stop Time Status Last Admin Dose Admin Acetaminophen 325 mg Q4HP PRN PO 05/20/25 18:00 05/21/25 18:38 325 MG Ondansetron HCl 4 mg Q4HP PRN IV 05/20/25 18:00 Enoxaparin Sodium 40 mg DAILY SC 05/21/25 10:00 Nitroglycerin 0.4 mg Q5MINP PRN SL 05/20/25 18:00 Morphine Sulfate 2 mg Q30M PRN IV 05/20/25 18:00 Methylprednisolone Sodium Succinate 125 mg DAILY IV 05/21/25 10:00 05/22/25 08:41 125 MG Sodium Chloride 1,000 ml @ 75 mls/hr [id number] IV 05/20/25 18:15 05/21/25 07:35 75 MLS/HR objective General appearance: No acute distress Respiratory: Lungs clear to auscultation. No wheezing, crackles Cardiovascular: Regular rate and rhythm, no murmurs. No edema Abdomen: Soft, nondistended, nontender, bowel sounds present MSK: Normal range of motion. Generalized weakness Skin: Red, blachable rash on face, torso, sparing legs. Improving Neuro: Alert, no neurological deficits Psych: Pressured speech laboratory and microbiology Laboratory Tests 05/22/25 07:51 Test 05/22/25 07:51 Range/Units Serum Glucose 222 H 74-106 mg/dL Assessment/Plan 1. Rhabdomyolysis 2' Diagnosis/Comorbidities 2. Dermatitis 3. LE edema 4. Hyperglycemia Plan - Nephrology consulted for rhabdomyolysis. Patient started on IV fluids. - Cardiology consulted to evaluate for underlying CHF given lower extremity edema. Ultrasound negative for DVT. TTE does not suggest CHF. - Solu-Medrol 125 mg IV daily for dermatitis rash. Improving. Concern for dermatomyositis. Send-out labs pending. Will dc on tapering dose of dexamethasone. Patient refusing prednisone "because it makes me crazy." Attempted to sales counselor patient on similarity in steroids and side effects but patient refused. -PT eval ordered. Recommending SNF. Patient refusing. Will continue to work with PT to improve strength. - Plan of care discussed with daughter. Updated on course of events. -Insulin sliding scale for hyperglycemia likely secondary to steroids. HgbA1c pending. -Daily CBC and BMP - Full code Plan discussed with: Patient NAOMIE WOOD May 22, 2025 10:32
[2025-05-22] MEDS ORDERED: DEXTROSE (50%) 50ML SYRG IV PRN (10:45)
[2025-05-22] MEDS: ACCU-CHEK COMFORT CURVE STRIP VI SCH (11:30)
[2025-05-22] MEDS: InsuLIN REG 1unit/0.01ml Soln (100units/ml) SC SCH (11:30)
--- NOTE | 2025-05-22 15:20 | DVHPN2 ---
Progress Note Date Seen: May 22, 2025 Medical Necessity Reason Pt with a Central, PICC or Fol: No Subjective Patient reports: No new complaints Objective vital signs Vital Sign Date Time Temp Pulse Resp B/P (MAP) Pulse Ox O2 Delivery O2 Flow Rate FiO2 05/22/25 13:00 97.7 84 18 101/60 (74) 97 97.7 05/22/25 08:10 Room Air* 0 21 Total Intake and Output 05/21/25 05/21/25 05/22/25 15:00 23:00 07:00 Intake Total 1600 ml 400 ml Balance 1600 ml 400 ml medications Current Medications Medications Dose Ordered Sig/Karmen Route Start Time Stop Time Status Last Admin Dose Admin Acetaminophen 325 mg Q4HP PRN PO 05/20/25 18:00 05/21/25 18:38 325 MG Ondansetron HCl 4 mg Q4HP PRN IV 05/20/25 18:00 Enoxaparin Sodium 40 mg DAILY SC 05/21/25 10:00 Nitroglycerin 0.4 mg Q5MINP PRN SL 05/20/25 18:00 Morphine Sulfate 2 mg Q30M PRN IV 05/20/25 18:00 Methylprednisolone Sodium Succinate 125 mg DAILY IV 05/21/25 10:00 05/22/25 08:41 125 MG Sodium Chloride 1,000 ml @ 75 mls/hr [id number] IV 05/20/25 18:15 05/21/25 07:35 75 MLS/HR Diagnostic Test (Pha) 1 strip ACHS 05/22/25 11:30 05/22/25 11:30 1 STRIP Insulin Human Regular ACHS SC 05/22/25 11:30 05/22/25 11:30 8 UNITS Dextrose 50 ml UD PRN IV 05/22/25 10:45 Examination: GENERAL:Normal, LUNGS:Normal, CVS:Normal, SKIN:Abnormal (rash ), NEURO:Normal laboratory and microbiology Laboratory Tests 05/22/25 07:51 Test 05/22/25 07:51 Range/Units Serum Glucose 222 H 74-106 mg/dL Problem List/Assessment/Plan Problem List/Assessment/Plan # elevated creatinine kinase ? Rhabdomyolysis vs other etiology # generalized body rash ? Autoimmune etiology # fall # generalized weakness # transaminitis # lower extremity edema, resolved Plan/Recommendation ivf NS stable renal function MARIA GUADALUPE panel complements urine w/u not done though ordered--pls send urine w/u as ordered Plan discussed with: Patient My Orders My Orders Orders - BRIAN SEN MD Procedure Category Date Status Time Maria Guadalupe; Comprehensive LAB 05/22/25 In Process Panel 04:00 Complement C3 & C4 LAB 05/22/25 In Process 04:00 Aldolase LAB 05/22/25 In Process 04:00 Anca Panel LAB 05/22/25 In Process 04:00 BRIAN SEN MD May 22, 2025 15:20
[2025-05-22] MEDS ORDERED: DEXA2TAB PO (15:28)
[2025-05-22 17:14] LABS: Free T4 (Free Thyroxine) 1.36 ng/dL (0.89-1.76)
[2025-05-22 17:55] LABS: Cortisol,PM 8.44 ug/dL (3.44-16.76)
--- NOTE | 2025-05-22 22:51 | DVHDS2 ---
Discharge Summary Date of Admission May 20, 2025 at 18:00 Date of Discharge: May 22, 2025 Labs/Diagnostic Data: Laboratory Results Test 05/22/25 21:15 05/22/25 16:11 05/22/25 07:51 05/22/25 04:00 POC Glucose 362 mg/dl (70-106) Free Thyroxine (T4) Calculated 1.36 ng/dL (0.89-1.76) Cortisol PM Sample 8.44 ug/dL (3.44-16.76) White Blood Count 13.1 10^3/uL (4.4-10.8) Red Blood Count 3.66 10^6/uL (4.0-5.20) Hemoglobin 11.4 g/dL (12.2-16.2) Hematocrit 33.1 % (36.0-46.0) Mean Corpuscular Volume 90.6 fL (80.0-100.0) Mean Corpuscular Hemoglobin 31.1 pg (28.0-32.0) Mean Corpuscular Hemoglobin Concent 34.4 g/dL (32.0-36.0) Red Cell Distribution Width 13.5 % (11.8-14.3) Platelet Count 292 10^3/uL (140-450) Mean Platelet Volume 7.5 fL (6.9-10.8) Neutrophils (%) (Auto) 75.8 % (37.0-80.0) Lymphocytes (%) (Auto) 12.1 % (10.0-50.0) Monocytes (%) (Auto) 10.9 % (0.0-12.0) Eosinophils (%) (Auto) 1.0 % (0.0-7.0) Basophils (%) (Auto) 0.2 % (0.0-2.0) Neutrophils # (Auto) 9.9 10 ^3/uL (1.6-8.6) Lymphocytes # (Auto) 1.6 10 ^3/uL (0.4-5.4) Monocytes # (Auto) 1.4 10 ^3/uL (0-1.3) Eosinophils # (Auto) 0.1 10 ^3/uL (0-0.8) Basophils # (Auto) 0 10 ^3/uL (0-0.2) Nucleated Red Blood Cells 0.1 % Sodium Level 140 mmol/L (136-145) Potassium Level 3.4 mmol/L (3.5-5.1) Chloride Level 103 mmol/L (98-107) Carbon Dioxide Level 29 mmol/L (20-31) Anion Gap 8 (5-15) Blood Urea Nitrogen 21 mg/dL (9-23) Creatinine 0.76 mg/dL (0.550-1.02) Glomerular Filtration Rate Calc 81 mL/min (>90) BUN/Creatinine Ratio 27.6 (10.0-20.0) Serum Glucose 222 mg/dL (74-106) Hemoglobin A1c 8.9 % A1C (<5.7) Calcium Level 8.6 mg/dL (8.7-10.4) Phosphorus Level 2.6 mg/dL (2.4-5.1) Magnesium Level 2.3 mg/dL (1.6-2.6) Total Bilirubin 0.5 mg/dL (0.2-1.0) Aspartate Amino Transferase (AST) 90 U/L (13-40) Alanine Aminotransferase (ALT) 74 U/L (7-40) Alkaline Phosphatase 63 U/L (46-116) Creatine Kinase 975 U/L (34-145) C-Reactive Protein High Sensitivity 2.36 mg/dL (<1.0) Total Protein 6.0 g/dL (5.7-8.2) Albumin 3.6 g/dL (3.2-4.8) Cortisol AM Sample 7.13 ug/dL (5.27-22.45) Erythrocyte Sedimentation Rate 30 mm/hr (0-20) Test 05/21/25 06:19 05/20/25 13:47 Differential Total Cells Counted 100.0 (100) Neutrophils % (Manual) 91 (37.0-80.0) Band Neutrophils % (Manual) 0 Lymphocytes % (Manual) 7 (10.0-50.0) Monocytes % (Manual) 2 (0-12) Eosinophils % (Manual) 0 (0-7) Basophils % (Manual) 0 (0.0-2.0) Metamyelocytes % (manual) 0 Myelocytes % (Manual) 0 Promyelocytes % (Manual) 0 Blast Cells % (Manual) 0 Reactive Lymphocytes 0 Platelet Estimate Adequate Thyroid Stimulating Hormone (TSH) 1.28 uIU/mL (0.55-4.78) Troponin I High Sensitivity 10 ng/L (</=34) Other Laboratory Tests 05/22/25 07:51 Final Diagnosis/Problems List Rhabdomyolysis Discharge Disposition: Home with Health Services Discharge Instruct/Medications Diet: Regular Activity: No Restrictions, As Tolerated Scheduled Dexamethasone (Dexamethasone), 2 MG PO DAILY Discharge Statement: "Patient was advised to return to the ER or call 911 if any headaches, dizziness, shortness of breath, chest pain, abdominal pain, bleeding, fevers, or worsening of medical condition. Patient was counseled about treatment plan, medications, possible side effects, patientverbalized understanding. All questions were answered to the best of my ability. This discharge took greater then 30 minutes in planning, reviewing documentation, counseling the patient, and discussing with other team members." ASSESSMENT ASSESSMENT Assessment Rhabdomyolysis NAOMIE WOOD DO May 22, 2025 22:51
--- NOTE | 2025-05-23 01:38 | DVHPN2 ---
Progress Note - Dictate Date Seen: May 22, 2025 Medical Necessity Reason Pt with a Central, PICC or Fol: No Subjective Patient was seen and evaluated in follow up. Patient is complaining of generalized pain. Patient is adamantly refusing SNF and would prefer to go home. Patient has an APS report filed and per daughter, house is in very poor condition due to hoarding. WBC 13.1, K 3.4, GLUC 326, CA 8.6, AST 90, ALT 74, Creatine Kinease 975. vital signs Vital Sign Date Time Temp Pulse Resp B/P (MAP) Pulse Ox O2 Delivery O2 Flow Rate FiO2 05/22/25 13:00 97.7 84 18 101/60 (74) 97 97.7 05/22/25 08:10 Room Air* 0 21 Total Intake and Output 05/21/25 05/21/25 05/22/25 15:00 23:00 07:00 Intake Total 1600 ml 400 ml Balance 1600 ml 400 ml medications Current Medications Medications Dose Ordered Sig/Karmen Route Start Time Stop Time Status Last Admin Dose Admin Acetaminophen 325 mg Q4HP PRN PO 05/20/25 18:00 05/21/25 18:38 325 MG Ondansetron HCl 4 mg Q4HP PRN IV 05/20/25 18:00 Enoxaparin Sodium 40 mg DAILY SC 05/21/25 10:00 Nitroglycerin 0.4 mg Q5MINP PRN SL 05/20/25 18:00 Morphine Sulfate 2 mg Q30M PRN IV 05/20/25 18:00 Methylprednisolone Sodium Succinate 125 mg DAILY IV 05/21/25 10:00 05/22/25 08:41 125 MG Sodium Chloride 1,000 ml @ 75 mls/hr [id number] IV 05/20/25 18:15 05/21/25 07:35 75 MLS/HR Diagnostic Test (Pha) 1 strip ACHS 05/22/25 11:30 05/22/25 11:30 1 STRIP Insulin Human Regular ACHS SC 05/22/25 11:30 05/22/25 11:30 8 UNITS Dextrose 50 ml UD PRN IV 05/22/25 10:45 objective GENERAL: Alert and oriented x 3. No acute distress. EYES: PERRL, EOMI. Anicteric. HENT: Moist mucous membranes. LUNGS: Clear to auscultation bilaterally. CARDIOVASCULAR: Regular rate and rhythm. ABDOMEN: Soft, non-tender and non-distended. EXTREMITIES: BLE edema. NEUROLOGIC: No focal neurological deficits. SKIN: Warm, dry. Contact dermatitis all over her body. laboratory and microbiology Laboratory Tests 05/22/25 07:51 Test 05/22/25 07:51 Range/Units Serum Glucose 222 H 74-106 mg/dL Problem List Rhabdomyolysis. Contact dermatitis. BLE edema. Assessment/Plan Continued all current supportive medical care. Morphine for pain management. Nitro SL. Additional plan as per the hospital course. Plan discussed with: Patient CRISTOPHER ESPAÑA MD May 22, 2025 14:48
[2025-05-23 09:30] VITALS: BP 128/65; PULSE 86; RESP 20; TEMP 98.3; O2SAT 97
[2025-05-23 11:08] LABS: Anti-Centromere B Antibody <0.2 AI (0.0-0.9); Anti-Jo-1 Antibody <0.2 AI (0.0-0.9); Anti-dsDNA Antibody 1 IU/mL (0-9); Antichromatin Antibody <0.2 AI (0.0-0.9); Antiscleroderma-70 Antibody <0.2 AI (0.0-0.9); Sjogren's Anti-SS-A Antibody <0.2 AI (0.0-0.9); Sjogren's Anti-SS-B Antibody <0.2 AI (0.0-0.9)
--- NOTE | 2025-05-23 13:02 | DVHPN2 ---
Progress Note Date Seen: May 23, 2025 Resident Creating Document: MARY MIMS RESIDENT Medical Necessity Reason Pt with a Central, PICC or Fol: No Subjective Review of Systems History of Present Illness 79-year-old female with past medical history of generalized body rash ( started four weeks ago), presented with complaints of generalized weakness and fall. Patient mentioned that patient had a fall on Tuesday where she was stuck between furniture. Patient has started having muscle aches and back and legs and decided to come to the hospital. Patient mentioned that she had a generalized body rash that started four weeks ago. On presenting to the ER, patient was started on IV fluids as her creatinine kinase was elevated. Patient denied any complaint of fever, chills, nausea, vomiting, abdominal pain. Denied any recreational drug intake including alcohol. Denied any complaints of decreased urine output, dysuria. Past medical history Generalized rash started four years ago, diagnosed as contact dermatitis Past surgical history Denied recent surgery Family history Nonsignificant Social history Denied smoking, alcohol, marijuana or any other drug intake Medication history No active meds Allergic history Diphenhydramine, penicillin 05/23/2025 Patient mentioned no active complaints, still has generalized body rash Objective vital signs Vital Sign Date Time Temp Pulse Resp B/P (MAP) Pulse Ox O2 Delivery O2 Flow Rate FiO2 05/23/25 09:30 98.3 86 20 128/65 (86) 97 98.3 05/23/25 08:00 Room Air* 0 21 Total Intake and Output 05/22/25 05/22/25 05/23/25 15:00 23:00 07:00 Intake Total 1200 ml 600 ml Balance 1200 ml 600 ml medications Current Medications Medications Dose Ordered Sig/Karmen Route Start Time Stop Time Status Last Admin Dose Admin Acetaminophen 325 mg Q4HP PRN PO 05/20/25 18:00 05/22/25 22:33 325 MG Ondansetron HCl 4 mg Q4HP PRN IV 05/20/25 18:00 Enoxaparin Sodium 40 mg DAILY SC 05/21/25 10:00 Nitroglycerin 0.4 mg Q5MINP PRN SL 05/20/25 18:00 Morphine Sulfate 2 mg Q30M PRN IV 05/20/25 18:00 Methylprednisolone Sodium Succinate 125 mg DAILY IV 05/21/25 10:00 05/22/25 08:41 125 MG Sodium Chloride 1,000 ml @ 75 mls/hr [id number] IV 05/20/25 18:15 05/22/25 23:57 75 MLS/HR Diagnostic Test (Pha) 1 strip ACHS 05/22/25 11:30 05/23/25 11:30 1 STRIP Insulin Human Regular ACHS SC 05/22/25 11:30 05/22/25 22:32 10 UNITS Dextrose 50 ml UD PRN IV 05/22/25 10:45 Examination Examination General Appearance: Alert, Oriented X3, Cooperative, No acute distress HEENT: EOMI Respiratory: Clear to auscultation, Normal air movement Cardiovascular: Regular rate, Normal S1, Normal S2 Abdominal: Normal bowel sounds Extremities: No cyanosis, No edema, Normal pulses, No tenderness/swelling Skin: Generalized body rash present on chest, thighs, knees Neuro: Normal speech and tone laboratory and microbiology Laboratory Tests 05/22/25 07:51 Test 05/22/25 07:51 Range/Units Serum Glucose 222 H 74-106 mg/dL Labs and/or images reviewed: Labs reviewed by me, Image(s) reviewed by me Problem List/Assessment/Plan Problem List/Assessment/Plan Assessment # elevated creatinine kinase ? Rhabdomyolysis ? Dermatomyositis/polymyositis Creatinine kinase 3027, 1671, 975 # generalized body rash ? Autoimmune etiology -Started four weeks ago # fall # generalized weakness # transaminitis # lower extremity edema, resolved Plan/Recommendation Plan Strict input output Monitor kidney function and electrolytes including calcium, potassium, magnesium and phosphate Patient initially received IV fluids at 150 cc/hour and was switched to 75 cc/hour Continue IV fluids at 75 cc/hour Creatine kinase levels improving Patient does not need IV bicarb at this point. Ordered Urinalysis, awaiting results Ordered VIC with comprehensive panel, complement C3 and C4, ESR, CRP, serum aldolase and ANCA panel Ordered thyroid function test and cortisol, within normal limits Normal complement levels Patient is planned to be discharged on oral steroids for seven days Consider outpatient derm evaluation Case discussion with Dr. Morgan Addendum Patient seen and examined, plan discussed with resident. Agree with above, we will follow closely Plan discussed with: Patient, Other Dietary Evaluation Review Comments: Rhabdomyolysis: Instructed pt on good hydration, eat complex CHO, lean protein, food high in antioxidants and healthy fat. Refer to to DM educator upon D/C Expected Outcomes/Goals: healed skin rashed, gradual wt loss. MARY MIMS May 23, 2025 13:02 BRIAN MORGAN MD May 23, 2025 16:42
[2025-05-23 13:30] VITALS: BP 128/72; PULSE 87; RESP 19; TEMP 98.5; O2SAT 97
[2025-05-23 14:04] LABS: Chloride 104 mmol/L (98-107); Potassium 3.9 mmol/L (3.5-5.1); Sodium 142 mmol/L (136-145)
[2025-05-23 14:05] LABS: Anion Gap 9 (5-15); Carbon Dioxide 29 mmol/L (20-31)
[2025-05-23 14:06] LABS: Calcium 8.9 mg/dL (8.7-10.4)
[2025-05-23 14:08] VITALS: TEMP 36.8
[2025-05-23 14:11] LABS: BUN/Creatinine Ratio 33.7 (10.0-20.0); Blood Urea Nitrogen 28 mg/dL (9-23); Glucose 238 mg/dL (74-106); Magnesium 2.2 mg/dL (1.6-2.6)
[2025-05-23 16:49] VITALS: BP 125/75; PULSE 84; RESP 19; TEMP 98.4; O2SAT 96
--- NOTE | 2025-05-23 19:54 | DVHPN2 ---
Progress Note - Dictate Date Seen: May 23, 2025 Medical Necessity Reason Pt with a Central, PICC or Fol: No Subjective Patient was seen and evaluated in follow up. Patient is complaining of generalized pain. GLUC 242. vital signs Vital Sign Date Time Temp Pulse Resp B/P (MAP) Pulse Ox O2 Delivery O2 Flow Rate FiO2 05/23/25 09:30 98.3 86 20 128/65 (86) 97 98.3 05/23/25 08:00 Room Air* 0 21 Total Intake and Output 05/22/25 05/22/25 05/23/25 15:00 23:00 07:00 Intake Total 1200 ml 600 ml Balance 1200 ml 600 ml medications Current Medications Medications Dose Ordered Sig/Karmen Route Start Time Stop Time Status Last Admin Dose Admin Acetaminophen 325 mg Q4HP PRN PO 05/20/25 18:00 05/22/25 22:33 325 MG Ondansetron HCl 4 mg Q4HP PRN IV 05/20/25 18:00 Enoxaparin Sodium 40 mg DAILY SC 05/21/25 10:00 Nitroglycerin 0.4 mg Q5MINP PRN SL 05/20/25 18:00 Morphine Sulfate 2 mg Q30M PRN IV 05/20/25 18:00 Methylprednisolone Sodium Succinate 125 mg DAILY IV 05/21/25 10:00 05/22/25 08:41 125 MG Sodium Chloride 1,000 ml @ 75 mls/hr [id number] IV 05/20/25 18:15 05/22/25 23:57 75 MLS/HR Diagnostic Test (Pha) 1 strip ACHS 05/22/25 11:30 05/23/25 11:30 1 STRIP Insulin Human Regular ACHS SC 05/22/25 11:30 05/22/25 22:32 10 UNITS Dextrose 50 ml UD PRN IV 05/22/25 10:45 objective GENERAL: Alert and oriented x 3. No acute distress. EYES: PERRL, EOMI. Anicteric. HENT: Moist mucous membranes. LUNGS: Clear to auscultation bilaterally. CARDIOVASCULAR: Regular rate and rhythm. ABDOMEN: Soft, non-tender and non-distended. EXTREMITIES: BLE edema. NEUROLOGIC: No focal neurological deficits. SKIN: Warm, dry. Contact dermatitis all over her body. laboratory and microbiology Laboratory Tests 05/22/25 07:51 Test 05/22/25 07:51 Range/Units Serum Glucose 222 H 74-106 mg/dL Problem List Rhabdomyolysis. Contact dermatitis. BLE edema. Assessment/Plan Continued all current supportive medical care. Morphine for pain management. Nitro SL. Additional plan as per the hospital course. Dietary Evaluation Review Comments: Rhabdomyolysis: Instructed pt on good hydration, eat complex CHO, lean protein, food high in antioxidants and healthy fat. Refer to to DM educator upon D/C Expected Outcomes/Goals: healed skin rashed, gradual wt loss. Plan discussed with: Patient CRISTOPHER ESPAÑA MD May 23, 2025 13:05
[2025-05-23 20:00] VITALS: PULSE 90; RESP 18
[2025-05-23 21:00] VITALS: BP 129/62; PULSE 90; RESP 18; TEMP 98.4; O2SAT 96
[2025-05-24 01:00] VITALS: BP 108/58; PULSE 84; RESP 18; TEMP 97.7; O2SAT 96
[2025-05-24 08:31] VITALS: BP 108/54; PULSE 88; RESP 18; TEMP 98; O2SAT 95
--- NOTE | 2025-05-24 16:46 | DVHPN2 ---
Progress Note Date Seen: May 24, 2025 Resident Creating Document: MARY MIMS RESIDENT Medical Necessity Reason Pt with a Central, PICC or Fol: No Subjective Review of Systems History of Present Illness 79-year-old female with past medical history of generalized body rash ( started four weeks ago), presented with complaints of generalized weakness and fall. Patient mentioned that patient had a fall on Tuesday where she was stuck between furniture. Patient has started having muscle aches and back and legs and decided to come to the hospital. Patient mentioned that she had a generalized body rash that started four weeks ago. On presenting to the ER, patient was started on IV fluids as her creatinine kinase was elevated. Patient denied any complaint of fever, chills, nausea, vomiting, abdominal pain. Denied any recreational drug intake including alcohol. Denied any complaints of decreased urine output, dysuria. Past medical history Generalized rash started four years ago, diagnosed as contact dermatitis Past surgical history Denied recent surgery Family history Nonsignificant Social history Denied smoking, alcohol, marijuana or any other drug intake Medication history No active meds Allergic history Diphenhydramine, penicillin 05/24/2025 Patient mentioned no active complaints, still has generalized body rash Objective vital signs Vital Sign Date Time Temp Pulse Resp B/P (MAP) Pulse Ox O2 Delivery O2 Flow Rate FiO2 05/24/25 08:31 98.0 88 18 108/54 (72) 95 98.0 05/24/25 08:19 Room Air* 0 21 Total Intake and Output 05/23/25 05/23/25 05/24/25 15:00 23:00 07:00 Intake Total 740 ml Output Total 600 ml 0 ml Balance 140 ml 0 ml Examination Examination General Appearance: Alert, Oriented X3, Cooperative, No acute distress HEENT: EOMI Respiratory: Clear to auscultation, Normal air movement Cardiovascular: Regular rate, Normal S1, Normal S2 Abdominal: Normal bowel sounds Extremities: No cyanosis, No edema, Normal pulses, No tenderness/swelling Skin: Generalized body rash present on chest, thighs, knees Neuro: Normal speech and tone laboratory and microbiology Laboratory Tests 05/23/25 13:35 05/22/25 07:51 Test 05/23/25 13:35 Range/Units Serum Glucose 238 H 74-106 mg/dL Labs and/or images reviewed: Labs reviewed by me, Image(s) reviewed by me Problem List/Assessment/Plan Problem List/Assessment/Plan Assessment # elevated creatinine kinase ? Rhabdomyolysis vs other etology Creatinine kinase 3027, 1671, 975 # generalized body rash ? Autoimmune etiology -Started four weeks ago # fall # generalized weakness # transaminitis # lower extremity edema, resolved Plan Strict input output Monitor kidney function and electrolytes including calcium, potassium, magnesium and phosphate Patient received IV fluids at 150 cc/hour and was switched to 75 cc/hour, which were later discontinued Creatine kinase levels improving Patient does not need IV bicarb at this point. Ordered Urinalysis, awaiting results Ordered ESR, CRP Ordered VIC with comprehensive panel, complement C3 and C4,serum aldolase and ANCA panel, within normal limits Ordered thyroid function test and cortisol, within normal limits Normal complement levels Patient is planned to be discharged on oral steroids for seven days Consider outpatient derm evaluation Patient did not have any deterioration of kidney function throughout hospital visit We will sign off from this case as of now Currently consult again if needed Case discussion with Dr. Morgan Addendum Patient seen and examined, plan discussed with resident. Agree with above, we will follow closely outpt f/u Plan discussed with: Patient, Other Dietary Evaluation Review Comments: Rhabdomyolysis: Instructed pt on good hydration, eat complex CHO, lean protein, food high in antioxidants and healthy fat. Refer to to DM educator upon D/C Expected Outcomes/Goals: healed skin rashed, gradual wt loss. MARY MIMS RESIDENT May 24, 2025 16:46 BRIAN MORGAN MD May 24, 2025 18:47
--- NOTE | 2025-05-24 22:04 | DVHPN2 ---
Progress Note - Dictate Date Seen: May 24, 2025 Medical Necessity Reason Pt with a Central, PICC or Fol: No Subjective Patient was seen and evaluated in follow up. Patient has no new complaints at this time. Patient denies any cardiac symptoms. Patient is cardiac stable for discharge. vital signs Vital Sign Date Time Temp Pulse Resp B/P (MAP) Pulse Ox O2 Delivery O2 Flow Rate FiO2 05/24/25 08:31 98.0 88 18 108/54 (72) 95 98.0 05/24/25 08:19 Room Air* 0 21 Total Intake and Output 05/23/25 05/23/25 05/24/25 15:00 23:00 07:00 Intake Total 740 ml Output Total 600 ml 0 ml Balance 140 ml 0 ml objective GENERAL: Alert and oriented x 3. No acute distress. EYES: PERRL, EOMI. Anicteric. HENT: Moist mucous membranes. LUNGS: Clear to auscultation bilaterally. CARDIOVASCULAR: Regular rate and rhythm. ABDOMEN: Soft, non-tender and non-distended. EXTREMITIES: BLE edema. NEUROLOGIC: No focal neurological deficits. SKIN: Warm, dry. Contact dermatitis all over her body. laboratory and microbiology Laboratory Tests 05/23/25 13:35 05/22/25 07:51 Test 05/23/25 13:35 Range/Units Serum Glucose 238 H 74-106 mg/dL Problem List Rhabdomyolysis. Contact dermatitis. BLE edema. Assessment/Plan Continued all current supportive medical care. Morphine for pain management. Nitro SL. Additional plan as per the hospital course. Dietary Evaluation Review Comments: Rhabdomyolysis: Instructed pt on good hydration, eat complex CHO, lean protein, food high in antioxidants and healthy fat. Refer to to DM educator upon D/C Expected Outcomes/Goals: healed skin rashed, gradual wt loss. Plan discussed with: Patient CRISTOPHER ESPAÑA MD May 24, 2025 11:50
== END 2025-05-24 11:00 | disposition home health service (06) | DRG 558 ==
LOC: ER 12:33 → EDBD 12:33 → OVERFLOW 18:00 → EAST 18:04
PROVIDERS: ADMIT Student in an Organized Health Care Education/Training Program; ATTEND Student in an Organized Health Care Education/Training Program
DX: M62.82 Rhabdomyolysis (principal); R74.01 Elevation of levels of liver transaminase levels; L25.9 Unspecified contact dermatitis, unspecified cause; Z79.899 Other long term (current) drug therapy; Z88.0 Allergy status to penicillin; Z80.8 Family history of malignant neoplasm of other organs or systems; Z80.1 Family history of malignant neoplasm of trachea, bronchus and lung
CPT/HCPCS: 36415; 80048; 80053; 82085; 82533; 82550; 82962; 83036; 83516; 83520; 83735; 84100; 84439; 84443; 84484; 85007; 85025; 85027; 85652; 86141; 86160; 86225; 86235; 86256; 93306; 93970; 97110; 97116; 97163; 97530; 99291; 99292; G0378; J1815

== ENCOUNTER 2025-07-02 06:28 | Inpatient (IN) | payer OTHER ==
[~2025-07-02] VITALS: Ht 160 cm; Wt 69.1 kg
[~2025-07-02 06:28] MED LIST: DEXA2TAB PO
--- NOTE | 2025-07-02 06:54 | ED.PDOC ---
History of Present Illness HPI Comments 79 year old female presents to the ED via EMS with a chief compliant of failure to thrive. Per EMS, upon their arrival patient was laying on bed, was not able to get up, was covered in feces, weak. Patient was refusing to come to ED, S.O was called, was told she had to come to ED. Upon ED arrival, patient can't say what happened, states she has no health problems, does not take any medication. Patient is a poor historian. No other symptoms or modifying factors present at this time. Chief Complaint: General Weakness Time Seen by MD: 06:45 Reviewed Notes: Medications, Allergies Allergies: Coded Allergies: Diphenhydramine (Verified Allergy, Unknown, 05/20/25) Penicillins (Verified Allergy, Unknown, 05/20/25) Home Meds Active Scripts Dexamethasone (Dexamethasone) 2 Mg Tab, 2 MG PO DAILY for 7 Days, #13 TAB 0 Refills Take 3 tablets daily for 2 days, then 2 tablets daily for 2 days, then 1 tablet daily for 2 days, then 1/2 tablet daily for 2 days then stop. Prov:NAOMIE WOOD 05/22/25 Information Source: Patient, Emergency Med Personnel Mode of Arrival: EMS Severity: Moderate Timing: Hours Duration: Since onset Prehospital treatment: None Past Medical History PAST MEDICAL HISTORY: Denies Surgical History: Denies all surgeries ROW BOSS HOEING History: Denies all ROW BOSS HOEING Hx Family History Family History: Reviewed,noncontributory to illness Social History Smoker: Non-Smoker Alcohol: Denies ETOH Use Drugs: Denies Drug Use Lives In: Home Constitutional: reports: weakness; denies: chills, diaphoresis, fatigue, fever, malaise, sweats, others EENTM: denies: blurred vision, double vision, ear bleeding, ear discharge, ear drainage, ear pain, ear ringing, eye pain, eye redness, hearing loss, mouth pain, mouth swelling, nasal discharge, nose bleeding, nose congestion, nose pain, photophobia, tearing, throat pain, throat swelling, voice changes, others Respiratory: denies: cough, hemoptysis, orthopnea, SOB at rest, shortness of breath, SOB with excertion, stridor, wheezing, others Cardiovascular: denies: chest pain, dizzy spells, diaphoresis, Dyspnea on exertion, edema, irregular heart beat, left arm pain, lightheadedness, palpitations, PND, syncope, others Gastrointestinal: denies: abdomen distended, abdominal pain, blood streaked bowels, constipated, diarrhea, dysphagia, difficulty swallowing, hematemesis, melena, nausea, poor appetite, poor fluid intake, rectal bleeding, rectal pain, vomiting, others Genitourinary: denies: abnormal vagina bleeding, burning, dyspareunia, dysuria, flank pain, frequency, hematuria, incontinence, pain, , vagina discharge, urgency, others Neurological: reports: weakness; denies: dizziness, fainting, headache, left sided numbness, left sided weakness, numbness, paresthesia, pre-existing deficit, right sided numbness, right sided weakness, seizure, speech problems, tingling, tremors, others Musculoskeletal: denies: back pain, gout, joint pain, joint swelling, muscle pain, muscle stiffness, neck pain, others Integumetry: denies: bruises, change in color, change in hair/nails, dryness, laceration, lesions, lumps, rash, wounds, others Allergic/Immunocompromised: denies: Difficulty Healing, Frequent Infections, Hives, Itching, others Hematologic/Lymphatic: denies: anemia, blood clots, easy bleeding, easy bruising, swollen glands, others Endocrine: denies: excessive hunger, excessive sweating, excessive thirst, excessive urination, flushing, intolerance to cold, intolerance to heat, unexplained weight gain, unexplained weight loss, others Psychiatric: denies: anxiety, bipolar disorder, depression, hopeless, panic disorder, schizophrenia, sleepless, suicidal, others All Other Systems: Reviewed and Negative Physical Exam General Appearance: Normal HEENT: Normal ENT Inspection, Pharynx Normal, TMs Normal Neck: Full Range of Motion, Non-Tender, Normal, Normal Inspection Respiratory: Chest Non-Tender, Lungs Clear, No Accessory Muscle Use, No Respiratory Distress, Normal Breath Sounds Cardiovascular: No Edema, No JVD, No Murmur, No Gallop, Normal Peripheral Pulses, Regular Rate/Rhythm Breast Exam: Deferred Gastrointestinal: No Organomegaly, Non Tender, No Pulsatile Mass, Normal Bowel Sounds, Soft Genitalia: Deferred Pelvic: Deferred Rectal: Deferred Extremities: No calf tenderness, Normal capillary refill, Normal inspection, Normal range of motion, Non-tender, No pedal edema Musculoskeletal : Apperance: Normal Neurologic: Alert, interventionist II-XII nml as Tested, No Motor Deficits, Normal Affect, Normal Mood, No Sensory Deficits Cerebellar Function: Normal Reflexes: Normal Skin: Dry, Normal Color, Warm Lymphatic: No Adenopathy Was a procedure done? Was a procedure done?: No Differential Dx Considerations may include: Sepsis, CVA, viral syndrome, electrolyte IV, infectious etiology X-Ray, Labs, Meds, VS Vital Signs Date Time Temp Pulse Resp B/P (MAP) Pulse Ox O2 Delivery O2 Flow Rate FiO2 07/02/25 09:30 97 19 109/54 (72) 99 07/02/25 08:20 103 12 98 Room Air* 0 21 07/02/25 07:49 97.9 103 12 121/68 (85) 98 97.9 07/02/25 06:38 97.7 105 16 120/65 95 97.7 Lab Test 07/02/25 09:34 07/02/25 08:43 07/02/25 07:48 07/02/25 07:23 Range/Units Lactic Acid Level 4.4 *H 3.2 *H 0.4-2.0 mmol/L POC Glucose 239 H 70-106 mg/dl Urine Color Light-orange Yellow Urine Clarity Turbid H Clear Urine pH 5.0 5.0-9.0 Urine Specific [place] 1.022 1.001-1.035 Urine Protein 1+ H Negative Urine Ketones Negative Negative Urine Blood Trace H Negative /uL Urine Nitrite Negative Negative Urine Bilirubin Negative Negative Urine Urobilinogen Normal Negative mg/dL Urine Leukocyte Esterase 3+ Negative /uL Urine RBC 3 0 - 4 /hpf Urine Microscopic WBC 36 H 0-5 /HPF Urine Squamous Epithelial Cells Few <5 /hpf Urine Bacteria Many H None Seen /hpf Urine Hyaline Casts Many 0 - 2 /lpf Urine Mucus Few None Seen Urine Glucose Normal Normal mg/dL White Blood Count 17.2 H 4.4-10.8 10^3/uL Red Blood Count 4.88 4.0-5.20 10^6/uL Hemoglobin 14.3 12.2-16.2 g/dL Hematocrit 43.3 36.0-46.0 % Mean Corpuscular Volume 88.6 80.0-100.0 fL Mean Corpuscular Hemoglobin 29.4 28.0-32.0 pg Mean Corpuscular Hemoglobin Concent 33.1 32.0-36.0 g/dL Red Cell Distribution Width 15.7 H 11.8-14.3 % Platelet Count 229 140-450 10^3/uL Mean Platelet Volume 9.1 6.9-10.8 fL Neutrophils (%) (Auto) 81.2 H 37.0-80.0 % Lymphocytes (%) (Auto) 6.4 L 10.0-50.0 % Monocytes (%) (Auto) 12.2 H 0.0-12.0 % Eosinophils (%) (Auto) 0.0 0.0-7.0 % Basophils (%) (Auto) 0.2 0.0-2.0 % Neutrophils # (Auto) 14.0 H 1.6-8.6 10 ^3/uL Lymphocytes # (Auto) 1.1 0.4-5.4 10 ^3/uL Monocytes # (Auto) 2.1 H 0-1.3 10 ^3/uL Eosinophils # (Auto) 0 0-0.8 10 ^3/uL Basophils # (Auto) 0 0-0.2 10 ^3/uL Nucleated Red Blood Cells 0.0 % Sodium Level 141 136-145 mmol/L Potassium Level 4.8 3.5-5.1 mmol/L Chloride Level 98 98-107 mmol/L Carbon Dioxide Level 24 20-31 mmol/L Anion Gap 19 H 5-15 Blood Urea Nitrogen 136 *H 9-23 mg/dL Creatinine 3.19 H 0.550-1.02 mg/dL Glomerular Filtration Rate Calc 14 >90 mL/min BUN/Creatinine Ratio 42.6 H 10.0-20.0 Serum Glucose 234 H 74-106 mg/dL Calcium Level 9.5 8.7-10.4 mg/dL Total Bilirubin 0.6 0.2-1.0 mg/dL Aspartate Amino Transferase (AST) 16 13-40 U/L Alanine Aminotransferase (ALT) 20 7-40 U/L Alkaline Phosphatase 88 46-116 U/L Troponin I High Sensitivity 12 </=34 ng/L B-Type Natriuretic Peptide 47.41 0-100 pg/mL Total Protein 7.4 5.7-8.2 g/dL Albumin 3.8 3.2-4.8 g/dL Lipase 45 12-53 U/L Current Medications Medications (Trade) Dose Ordered Sig/Karmen Route Start Time Stop Time Status Last Admin Sodium Chloride 1,000 ml @ 1,000 mls/hr Q1H ONCE IV 07/02/25 07:00 07/02/25 07:59 DC 07/02/25 08:14 Cefepime HCl 50 ml @ 12.5 mls/hr ONCE ONCE IV 07/02/25 08:00 07/02/25 11:59 07/02/25 08:20 Sodium Chloride 1,000 ml @ 1,000 mls/hr Q1H ONCE IV 07/02/25 08:45 07/02/25 09:44 DC 07/02/25 09:37 [place] [address] Ph: [phone] DIAGNOSTIC IMAGING Diagnostic Imaging Report : [id number] Signed PATIENT: SHAYNA CANTRELL ACCT: [id number] UNIT: [id number] : 1945 LOC: ER ROOM / BED: / AGE / SEX: 79 / F ADM STATUS: REG ER SERVICE 0 ORDERING PHYSICIAN: EMILIE RYDER MD PROCEDURE(s): CXRP - CHEST PORTABLE REASON: weakness ORDER NUMBER(s): [id number], ACCESSION NUMBER(s): [id number] CHEST RADIOGRAPH Indication: weakness Technique: Single frontal view of the chest was obtained COMPARISON: None FINDINGS: Lines and Tubes: None Lungs: Clear Pleura: No effusion. No pneumothorax. Cardiomediastinal contours: Unremarkable Bones: Unremarkable IMPRESSION: No acute disease. ATED BY: QUOC ZHANG MD DICTATED DATE/TIME: 07/02/25852 SIGNED BY: QUOC ZHANG MD SIGNED DATE/TIME: 07/02/25852 CC: Time of 1ST Reevaluation: 07:15 Reevaluation 1ST: Unchanged Patient Education/Counseling: Diagnosis, Treatment, Prognosis Family Education/Counseling: No Family Present SEPSIS Sepsis Screen Date sepsis recognized/suspect: Jul 02, 2025 Time Sepsis recognized/suspect: 0642 Recent Procedure: No On Antibiotic Therapy: No Respiratory Rate >20: No Heart Rate >90: Yes Temp<36 C (96.8 F) or >38.3 C: No SBP <90 or MAP <65 mmHG: No New Acute Mental Status Change: No Is the patient on CPAP, BIPAP,: No Physician Orders Chest Portable (07/02/25 06:51) Blood Culture (07/02/25 06:51) Urine Bacterial Culture (07/02/25 06:51) Electrocardigram (07/02/25 06:51) Electrocardigram (07/02/25 07:51) Electrocardigram (07/02/25 09:51) Cefepime 2gm/50ml Ns (Maxipime 2gm/50ml) (07/02/25 08:00) Vancomycin Per Pharmacy Protoc (07/02/25 08:38) Insert/Manage Urinary Catheter QSHIFT (07/02/25 08:52) Vital Signs Date Time Temp Pulse Resp B/P (MAP) Pulse Ox O2 Delivery O2 Flow Rate FiO2 07/02/25 09:30 97 19 109/54 (72) 99 07/02/25 08:20 103 12 98 Room Air* 0 21 07/02/25 07:49 97.9 103 12 121/68 (85) 98 97.9 07/02/25 06:38 97.7 105 16 120/65 95 97.7 Laboratory Tests Test 07/02/25 07:23 07/02/25 09:34 Lactic Acid Level 3.2 mmol/L (0.4-2.0) *H 4.4 mmol/L (0.4-2.0) *H White Blood Count 17.2 10^3/uL (4.4-10.8) H Medications Medications Dose Ordered Sig/Karmen Route Start Time Stop Time Status Last Admin Dose Admin Cefepime HCl 50 ml @ 12.5 mls/hr ONCE ONCE IV 07/02/25 08:00 07/02/25 11:59 07/02/25 08:20 Sodium Chloride 1,000 ml @ 1,000 mls/hr Q1H ONCE IV 07/02/25 07:00 07/02/25 07:59 DC 07/02/25 08:14 Sodium Chloride 1,000 ml @ 1,000 mls/hr Q1H ONCE IV 07/02/25 08:45 07/02/25 09:44 DC 07/02/25 09:37 Departure 1 Departure Time of Disposition: 10:44 (Patient presents with signs concerning for sepsis versus rhabdo versus new renal failure. We will empirically cover patient with antibiotics and fluids admit patient for further workup.) Impression: Primary Impression: Sepsis Additional Impressions: Acute renal failure Generalized weakness Disposition: ADMITTED INPATIENT Admit to: Tele Condition: Guarded Critical Care Note Critical Care Time?: Yes Critical care comment: Suspected sepsis Authorized and Performed by: Emilie Ryder MD Total critical care time: Approximately 39 minutes Due to a high probability of clinically significant, life threatening deterioration, the patient required my highest level of preparedness to intervene emergently and I personally spent this critical care time directly and personally managing the patient. This critical care time included obtaining a history; examining the patient; pulse oximetry; ordering and review of studies; arranging urgent treatment with development of a management plan; evaluation of patient's response to treatment; frequent reassessment; and, discussions with other providers. This critical care time was performed to assess and manage the high probability of imminent, life-threatening deterioration that could result in multi-organ failure. It was exclusive of separately billable procedures and treating other patients and teaching time. Please see my other sections and the rest of the note for further information on patient assessment and treatment. Stability Stability form required: No I personally scribed for EMILIE RYDER MD ([email or web address]) on 07/02/25 at 06:54. Electronically submitted by Falguni Navarro ([email or web address]). I personally scribed for EMILIE RYDER MD ([email or web address]) on 07/02/25 at 10:05. Electronically submitted by Falguni Navarro ([email or web address]). EMILIE RYDER MD Jul 02, 2025 06:54
[2025-07-02 07:44] LABS: Hematocrit 43.3 % (36.0-46.0); Hemoglobin 14.3 g/dL (12.2-16.2); Mean Corpuscular Hemoglobin 29.4 pg (28.0-32.0); Mean Corpuscular Volume 88.6 fL (80.0-100.0); Nucleated Red Blood Cells % 0.0 %
[2025-07-02 08:04] LABS: Alanine Aminotransferase 20 U/L (7-40); Albumin 3.8 g/dL (3.2-4.8); Alkaline Phosphatase 88 U/L (46-116); Anion Gap 19 (5-15); BUN/Creatinine Ratio 42.6 (10.0-20.0); Calcium 9.5 mg/dL (8.7-10.4); Carbon Dioxide 24 mmol/L (20-31); Potassium 4.8 mmol/L (3.5-5.1); Sodium 141 mmol/L (136-145); Total Protein 7.4 g/dL (5.7-8.2)
[2025-07-02 08:05] LABS: Bilirubin, Total 0.6 mg/dL (0.2-1.0); Chloride 98 mmol/L (98-107); Glucose 234 mg/dL (74-106)
[2025-07-02 08:07] LABS: Blood Urea Nitrogen 136 mg/dL (9-23); Lactic Acid w/Reflex 3.2 mmol/L (0.4-2.0)
[2025-07-02] MEDS: SODIUM CHLORIDE 0.9% 1,000 ML IV ONE ×3 (08:14→10:45)
[2025-07-02 08:16] LABS: Urine Protein, UAD 1+ (Negative)
[2025-07-02 08:20] VITALS: PULSE 103; RESP 12; O2SAT 98
[2025-07-02] MEDS: CEFEPIME 2GM/50ML NS 50 ML IV ONE (08:20)
[2025-07-02 08:54] LABS: Lipase 45 U/L (12-53)
--- NOTE | 2025-07-02 08:55 | DVH ---
CHEST RADIOGRAPH Indication: weakness Technique: Single frontal view of the chest was obtained COMPARISON: None FINDINGS: Lines and Tubes: None Lungs: Clear Pleura: No effusion. No pneumothorax. Cardiomediastinal contours: Unremarkable Bones: Unremarkable IMPRESSION: No acute disease.
[2025-07-02] MEDS ORDERED: MORPHINE SULFATE INJ 2 MG/ml SYRG IV PRN (10:30)
[2025-07-02] MEDS ORDERED: SODIUM CHLORIDE 0.9% 1,000 ML IV SCH (10:30)
[2025-07-02] MEDS ORDERED: NITROGLYCERIN 0.4 MG SL TAB SL PRN (10:30)
--- NOTE | 2025-07-02 11:00 | DVHINCON2 ---
Date of service: Jul 02, [address] Wood Reason for Consultation Acute kidney injury History of Present Illness Patient is a 79-year-old female who was admitted to [facility] approximately one month ago with diffuse body rash and generalized weakness was diagnosed with the acute kidney injury , contact dermatitis and rhabdomyolysis. Patient admitted this admission after was found in bed unable to care for self and is admitted for failure to thrive. On admission patient found to have elevated BUN creatinine nephrology is consulted for acute kidney injury Past Medical History As per history of present illness Past Surgical History Patient denies Allergies: Coded Allergies: Diphenhydramine (Verified Allergy, Unknown, 05/20/25) Penicillins (Verified Allergy, Unknown, 05/20/25) Home Meds Active Scripts Dexamethasone (Dexamethasone) 2 Mg Tab, 2 MG PO DAILY for 7 Days, #13 TAB 0 Refills Take 3 tablets daily for 2 days, then 2 tablets daily for 2 days, then 1 tablet daily for 2 days, then 1/2 tablet daily for 2 days then stop. Prov:NAOMIE WOOD DO 05/22/25 Current Medications Current Medications Medications (Trade) Dose Ordered Sig/Karmen Route PRN Reason Start Time Stop Time Status Last Admin Diagnostic Test (Pha) (Accu-Chek Comfort Curve T) 1 strip ACHS 07/02/25 17:00 07/03/25 11:01 Insulin Human Regular (InsuLIN R) ACHS SC 07/02/25 17:00 07/03/25 11:37 Dextrose 50 ml UD PRN IV Blood Sugar LESS THAN 60 07/02/25 12:45 Cefepime HCl 50 ml @ 12.5 mls/hr DAILY IV 07/03/25 10:00 07/03/25 11:01 Vancomycin HCl 0 ml @ 0 mls/hr UD IV 07/02/25 23:45 Linezolid 300 ml @ 150 mls/hr Q12HR IV 07/03/25 10:00 07/03/25 09:10 DC Meropenem 50 ml @ 17 mls/hr Q12HR IV 07/03/25 10:00 07/03/25 09:10 DC Family History: FH: lung cancer G8 MOTHER Malignant melanoma G8 FATHER Review of Systems All 12 item review of systems reviewed with the patient nonsignificant except what is mentioned in the history of present illness H&P Exam Vital Signs/I&O Vital Sign Date Time Temp Pulse Resp B/P (MAP) Pulse Ox O2 Delivery O2 Flow Rate FiO2 07/03/25 05:00 98.3 84 18 112/60 (77) 99 98.3 07/02/25 20:00 Room Air* 0 21 Intake and Output 07/02/25 07/03/25 19:00 07:00 Intake Total 3700.0 ml 175 ml Output Total 1100 ml Balance 3700.0 ml -925 ml Intake Oral 175 ml IV Total 3700.0 ml Output Urine Total 1100 ml Physical Exam Patient is awake alert Diffuse erythematous skin rash all over the body Lungs clear to auscultation bilaterally Cardiac exam regular rate and rhythm GI soft nontender was normal Extremity erythematous swelling bilaterally Neuro nonfocal Labs/Diagnostic Data Labs/Diagnostic Data Laboratory Tests Test 07/03/25 11:15 07/03/25 06:52 07/03/25 06:05 07/02/25 23:20 Range/Units POC Glucose 153 H 169 H 133 H 70-106 mg/dl White Blood Count 11.8 #H 4.4-10.8 10^3/uL Red Blood Count 3.83 L 4.0-5.20 10^6/uL Hemoglobin 11.2 #L 12.2-16.2 g/dL Hematocrit 34.2 #L 36.0-46.0 % Mean Corpuscular Volume 89.3 80.0-100.0 fL Mean Corpuscular Hemoglobin 29.3 28.0-32.0 pg Mean Corpuscular Hemoglobin Concent 32.8 32.0-36.0 g/dL Red Cell Distribution Width 15.9 H 11.8-14.3 % Platelet Count 143 140-450 10^3/uL Mean Platelet Volume 8.6 6.9-10.8 fL Neutrophils (%) (Auto) 80.6 H 37.0-80.0 % Lymphocytes (%) (Auto) 6.5 L 10.0-50.0 % Monocytes (%) (Auto) 12.7 H 0.0-12.0 % Eosinophils (%) (Auto) 0.1 0.0-7.0 % Basophils (%) (Auto) 0.1 0.0-2.0 % Neutrophils # (Auto) 9.5 H 1.6-8.6 10 ^3/uL Lymphocytes # (Auto) 0.8 0.4-5.4 10 ^3/uL Monocytes # (Auto) 1.5 H 0-1.3 10 ^3/uL Eosinophils # (Auto) 0 0-0.8 10 ^3/uL Basophils # (Auto) 0 0-0.2 10 ^3/uL Nucleated Red Blood Cells 0.0 % Sodium Level 149 #H 136-145 mmol/L Potassium Level 3.7 3.5-5.1 mmol/L Chloride Level 110 #H 98-107 mmol/L Carbon Dioxide Level 24 20-31 mmol/L Anion Gap 15 5-15 Blood Urea Nitrogen 68 #H 9-23 mg/dL Creatinine 1.78 #H 0.550-1.02 mg/dL Glomerular Filtration Rate Calc 29 >90 mL/min BUN/Creatinine Ratio 38.2 H 10.0-20.0 Serum Glucose 178 H 74-106 mg/dL Calcium Level 8.2 L 8.7-10.4 mg/dL Total Bilirubin 0.5 0.2-1.0 mg/dL Aspartate Amino Transferase (AST) 19 13-40 U/L Alanine Aminotransferase (ALT) 10 7-40 U/L Alkaline Phosphatase 60 46-116 U/L Total Protein 5.7 5.7-8.2 g/dL Albumin 2.9 L 3.2-4.8 g/dL Random Vancomycin Level 10.1 H 5-10 ug/mL Test 07/02/25 17:45 07/02/25 12:47 07/02/25 12:17 07/02/25 11:16 Range/Units POC Glucose 226 H 70-106 mg/dl Troponin I High Sensitivity 16 13 </=34 ng/L Urine Color Light-orange Yellow Urine Clarity Turbid H Clear Urine pH 5.0 5.0-9.0 Urine Specific [place] 1.021 1.001-1.035 Urine Protein 1+ H Negative Urine Ketones Negative Negative Urine Blood Trace H Negative /uL Urine Nitrite Negative Negative Urine Bilirubin Negative Negative Urine Urobilinogen Normal Negative mg/dL Urine Leukocyte Esterase 2+ Negative /uL Urine RBC 7 0 - 4 /hpf Urine Microscopic WBC 24 H 0-5 /HPF Urine Squamous Epithelial Cells Few <5 /hpf Urine Bacteria Many H None Seen /hpf Urine Hyaline Casts Few 0 - 2 /lpf Urine Mucus Few None Seen Urine Creatinine 107.37 30.0-125.0 mg/dL Urine Protein/Creatinine Ratio 0.71 Urine Sodium < 10 L 40-220 mmol/L Urine Glucose Normal Normal mg/dL Urine Total Protein 75.7 H 1-14 mg/dL Creatine Kinase MB 2.7 0.0-5.3 ng/mL Vitamin D 25-Hydroxy 37.3 30.0-100 ng/mL Free Thyroxine (T4) Calculated 1.01 0.89-1.76 ng/dL Parathyroid Hormone (Intact) 26.2 18.4-80.1 pg/mL Test 07/02/25 09:34 07/02/25 08:43 07/02/25 07:48 07/02/25 07:42 Range/Units Lactic Acid Level 4.4 *H 0.4-2.0 mmol/L POC Glucose 239 H 70-106 mg/dl Urine Color Light-orange Yellow Urine Clarity Turbid H Clear Urine pH 5.0 5.0-9.0 Urine Specific [place] 1.022 1.001-1.035 Urine Protein 1+ H Negative Urine Ketones Negative Negative Urine Blood Trace H Negative /uL Urine Nitrite Negative Negative Urine Bilirubin Negative Negative Urine Urobilinogen Normal Negative mg/dL Urine Leukocyte Esterase 3+ Negative /uL Urine RBC 3 0 - 4 /hpf Urine Microscopic WBC 36 H 0-5 /HPF Urine Squamous Epithelial Cells Few <5 /hpf Urine Bacteria Many H None Seen /hpf Urine Hyaline Casts Many 0 - 2 /lpf Urine Mucus Few None Seen Urine Glucose Normal Normal mg/dL Thyroid Stimulating Hormone (TSH) 2.58 0.55-4.78 uIU/mL Test 07/02/25 07:23 Range/Units White Blood Count 17.2 H 4.4-10.8 10^3/uL Red Blood Count 4.88 4.0-5.20 10^6/uL Hemoglobin 14.3 12.2-16.2 g/dL Hematocrit 43.3 36.0-46.0 % Mean Corpuscular Volume 88.6 80.0-100.0 fL Mean Corpuscular Hemoglobin 29.4 28.0-32.0 pg Mean Corpuscular Hemoglobin Concent 33.1 32.0-36.0 g/dL Red Cell Distribution Width 15.7 H 11.8-14.3 % Platelet Count 229 140-450 10^3/uL Mean Platelet Volume 9.1 6.9-10.8 fL Neutrophils (%) (Auto) 81.2 H 37.0-80.0 % Lymphocytes (%) (Auto) 6.4 L 10.0-50.0 % Monocytes (%) (Auto) 12.2 H 0.0-12.0 % Eosinophils (%) (Auto) 0.0 0.0-7.0 % Basophils (%) (Auto) 0.2 0.0-2.0 % Neutrophils # (Auto) 14.0 H 1.6-8.6 10 ^3/uL Lymphocytes # (Auto) 1.1 0.4-5.4 10 ^3/uL Monocytes # (Auto) 2.1 H 0-1.3 10 ^3/uL Eosinophils # (Auto) 0 0-0.8 10 ^3/uL Basophils # (Auto) 0 0-0.2 10 ^3/uL Nucleated Red Blood Cells 0.0 % Sodium Level 141 136-145 mmol/L Potassium Level 4.8 3.5-5.1 mmol/L Chloride Level 98 98-107 mmol/L Carbon Dioxide Level 24 20-31 mmol/L Anion Gap 19 H 5-15 Blood Urea Nitrogen 136 *H 9-23 mg/dL Creatinine 3.19 H 0.550-1.02 mg/dL Glomerular Filtration Rate Calc 14 >90 mL/min BUN/Creatinine Ratio 42.6 H 10.0-20.0 Serum Glucose 234 H 74-106 mg/dL Hemoglobin A1c 7.3 H <5.7 % A1C Lactic Acid Level 3.2 *H 0.4-2.0 mmol/L Calcium Level 9.5 8.7-10.4 mg/dL Phosphorus Level 5.7 H 2.4-5.1 mg/dL Magnesium Level 2.9 H 1.6-2.6 mg/dL Total Bilirubin 0.6 0.2-1.0 mg/dL Aspartate Amino Transferase (AST) 16 13-40 U/L Alanine Aminotransferase (ALT) 20 7-40 U/L Alkaline Phosphatase 88 46-116 U/L Creatine Kinase 39 34-145 U/L Troponin I High Sensitivity 12 </=34 ng/L B-Type Natriuretic Peptide 47.41 0-100 pg/mL Total Protein 7.4 5.7-8.2 g/dL Albumin 3.8 3.2-4.8 g/dL Lipase 45 12-53 U/L Assessment Acute kidney injury secondary hemodynamic mediated Septic shock Urinary tract infection Bilateral lower extremity cellulitis Diffuse dermatitis Metabolic acidosis Hyperglycemia, rule out diabetes mellitus Recommendations Closely monitor fluid and electrolytes Avoid nephrotoxic medications Strict I&Os IVF half NS with 50 mEq sodium bicarb at 100 cc/hour IV antibiotics Check urine electrolytes and protein excretion Check kidney ultrasound Insulin sliding scale Check CPK We will continue to follow Patient seen and examined by myself. I discussed my plan of care with the patient and primary nurse at the bedside I would like to thank Dr. Wood for the consult, will follow Total care time 40 minutes Plan discussed with: Patient MADHU EMERY MD Jul 02, 2025 11:00
[2025-07-02] MEDS: VANCOMYCIN 1GM/250ML KIT 250 ML IV ONE (11:38)
[2025-07-02 12:10] LABS: Creatine Kinase IFCC 39.0 U/L (34-145)
[2025-07-02 12:12] LABS: Magnesium 2.9 mg/dL (1.6-2.6)
[2025-07-02 12:39] LABS: Urine Protein, UAD 1+ (Negative)
--- NOTE | 2025-07-02 12:44 | DVH ---
INDICATION: ruben TECHNIQUE: Multiple real-time sonographic images of the kidneys and bladder were obtained. COMPARISON: None FINDINGS: Extremely limited exam due to poor visualization of the bilateral kidneys due to obscuration from bow el gas. The right kidney measures 9.5 cm in length, which is normal in size. There is normal echogenicity of the right kidney. No hydronephrosis. The left kidney measures 9.1 cm in length, which is normal in size. There is normal echogenicity of t he left kidney. No hydronephrosis. The bladder is not visualized due to open wound in patient's pubic area which limits evaluation. IMPRESSION: 1. Normal sonographic appearance of the kidneys within limitations of exam. No hydronephrosis.
[2025-07-02] MEDS ORDERED: DEXTROSE (50%) 50ML SYRG IV PRN (12:45)
[2025-07-02 12:46] LABS: Protein, Urine 75.7 mg/dL (1-14)
[2025-07-02] MEDS: ALBUMIN 25% 100 ML IV ONE (13:27)
[2025-07-02] MEDS: SODIUM BICARB 50mEq/50ml Vial 50 ML in SOD CHL 0.45% 1,000 ML IV SCH (14:00)
[2025-07-02] MEDS: LORazepam 2MG/ML-1ML VIAL IV ONE (14:51)
[2025-07-02] MEDS: FLUCONAZOLE 100 MG TAB PO ONE (15:06)
[2025-07-02] MEDS: ACCU-CHEK COMFORT CURVE STRIP VI SCH (17:00)
[2025-07-02] MEDS: InsuLIN REG 1unit/0.01ml Soln (100units/ml) SC SCH (18:15)
[2025-07-02 20:00] VITALS: PULSE 89
[2025-07-02 21:00] VITALS: BP 129/105; PULSE 109; RESP 18; TEMP 98.4; O2SAT 97
[2025-07-02] MEDS ORDERED: VANCOMYCIN PER PHARMACY 0 MG IV SCH (23:45)
[2025-07-03] VITALS (8 sets, daily range): BP systolic 97–136; BP diastolic 35–99; PULSE 81–101; RESP 18; TEMP 97.7–98.3; O2SAT 95–100
[2025-07-03 06:54] LABS: Hematocrit 34.2 % (36.0-46.0); Hemoglobin 11.2 g/dL (12.2-16.2); Mean Corpuscular Hemoglobin 29.3 pg (28.0-32.0); Mean Corpuscular Volume 89.3 fL (80.0-100.0); Nucleated Red Blood Cells % 0.0 %
[2025-07-03 07:15] LABS: Alanine Aminotransferase 10 U/L (7-40); Alkaline Phosphatase 60 U/L (46-116); Anion Gap 15 (5-15); BUN/Creatinine Ratio 38.2 (10.0-20.0); Carbon Dioxide 24 mmol/L (20-31); Potassium 3.7 mmol/L (3.5-5.1)
[2025-07-03 07:16] LABS: Bilirubin, Total 0.5 mg/dL (0.2-1.0)
[2025-07-03 07:18] LABS: Blood Urea Nitrogen 68 mg/dL (9-23); Chloride 110 mmol/L (98-107); Glucose 178 mg/dL (74-106); Sodium 149 mmol/L (136-145)
[2025-07-03 07:19] LABS: Albumin 2.9 g/dL (3.2-4.8); Calcium 8.2 mg/dL (8.7-10.4); Total Protein 5.7 g/dL (5.7-8.2)
--- NOTE | 2025-07-03 08:10 | DVHHP2 ---
Admitting Diagnosis: Severe Sepsis Acute Renal Failure History of Present Illness HPI Patient is a 79-year-old female with past medical history of dermatitis who presents after being found down in her home. Patient is noted to be a hoarder who lives in very poor living conditions. EMS noted rats on the scene with feces. Patient arrived to the ER with vitals notable for sinus tachycardia to 105. Leukocytosis of 17.2 was noted and patient was noted to be in acute renal failure with BUN/creatinine of 136/3.19 with her baseline creatinine noted to be less than 1. Patient met criteria for severe sepsis and was started on broad- spectrum antibiotics, IV fluids. Of note, patient was seen in the hospital ap proximately 2 months prior for similar presentation. At the time patient refused to be discharged anywhere but home. She continues to insist on returning home once she is medically stabilized. Patient was admitted for further medical management. Home Meds Active Scripts Dexamethasone (Dexamethasone) 2 Mg Tab, 2 MG PO DAILY for 7 Days, #13 TAB 0 Refills Take 3 tablets daily for 2 days, then 2 tablets daily for 2 days, then 1 tablet daily for 2 days, then 1/2 tablet daily for 2 days then stop. Prov:NAOMIE WOOD DO 05/22/25 Past Medical History Dermatology: Other (dermatitis) Patient Family History: FH: lung cancer G8 MOTHER Malignant melanoma G8 FATHER Review of Systems Skin: Rash, Lesions, Dryness H&P Exam Vital Signs Vital Signs Date Time Temp Pulse Resp B/P (MAP) Pulse Ox O2 Delivery O2 Flow Rate FiO2 07/03/25 05:00 98.3 84 18 112/60 (77) 99 98.3 07/02/25 20:00 Room Air* 0 21 General Appeara: Other (Discheveled) Cardiovascular/Chest: Regular rate SEPSIS Sepsis Screen Date sepsis recognized/suspect: Jul 02, 2025 Time Sepsis recognized/suspect: 0950 Recent Procedure: No On Antibiotic Therapy: Yes Respiratory Rate >20: No Heart Rate >90: Yes Temp<36 C (96.8 F) or >38.3 C: No SBP <90 or MAP <65 mmHG: No New Acute Mental Status Change: No Is the patient on CPAP, BIPAP,: No Physician Orders * Infectious [place]- Dr. Sanjuanita Corado (07/03/25 05:00) Vital Signs Date Time Temp Pulse Resp B/P (MAP) Pulse Ox O2 Delivery O2 Flow Rate FiO2 07/03/25 05:00 98.3 84 18 112/60 (77) 99 98.3 07/03/25 00:58 98.3 101 18 136/99 (111) 98 98.3 Laboratory Tests Test 07/03/25 06:05 White Blood Count 11.8 10^3/uL (4.4-10.8) #H Labs/Xrays Labs Test 07/03/25 06:52 07/03/25 06:05 07/02/25 12:47 07/02/25 12:17 Range/Units POC Glucose 169 H 70-106 mg/dl White Blood Count 11.8 #H 4.4-10.8 10^3/uL Red Blood Count 3.83 L 4.0-5.20 10^6/uL Hemoglobin 11.2 #L 12.2-16.2 g/dL Hematocrit 34.2 #L 36.0-46.0 % Mean Corpuscular Volume 89.3 80.0-100.0 fL Mean Corpuscular Hemoglobin 29.3 28.0-32.0 pg Mean Corpuscular Hemoglobin Concent 32.8 32.0-36.0 g/dL Red Cell Distribution Width 15.9 H 11.8-14.3 % Platelet Count 143 140-450 10^3/uL Mean Platelet Volume 8.6 6.9-10.8 fL Neutrophils (%) (Auto) 80.6 H 37.0-80.0 % Lymphocytes (%) (Auto) 6.5 L 10.0-50.0 % Monocytes (%) (Auto) 12.7 H 0.0-12.0 % Eosinophils (%) (Auto) 0.1 0.0-7.0 % Basophils (%) (Auto) 0.1 0.0-2.0 % Neutrophils # (Auto) 9.5 H 1.6-8.6 10 ^3/uL Lymphocytes # (Auto) 0.8 0.4-5.4 10 ^3/uL Monocytes # (Auto) 1.5 H 0-1.3 10 ^3/uL Eosinophils # (Auto) 0 0-0.8 10 ^3/uL Basophils # (Auto) 0 0-0.2 10 ^3/uL Nucleated Red Blood Cells 0.0 % Sodium Level 149 #H 136-145 mmol/L Potassium Level 3.7 3.5-5.1 mmol/L Chloride Level 110 #H 98-107 mmol/L Carbon Dioxide Level 24 20-31 mmol/L Anion Gap 15 5-15 Blood Urea Nitrogen 68 #H 9-23 mg/dL Creatinine 1.78 #H 0.550-1.02 mg/dL Glomerular Filtration Rate Calc 29 >90 mL/min BUN/Creatinine Ratio 38.2 H 10.0-20.0 Serum Glucose 178 H 74-106 mg/dL Calcium Level 8.2 L 8.7-10.4 mg/dL Total Bilirubin 0.5 0.2-1.0 mg/dL Aspartate Amino Transferase (AST) 19 13-40 U/L Alanine Aminotransferase (ALT) 10 7-40 U/L Alkaline Phosphatase 60 46-116 U/L Total Protein 5.7 5.7-8.2 g/dL Albumin 2.9 L 3.2-4.8 g/dL Troponin I High Sensitivity 16 </=34 ng/L Urine Color Light-orange Yellow Urine Clarity Turbid H Clear Urine pH 5.0 5.0-9.0 Urine Specific [place] 1.021 1.001-1.035 Urine Protein 1+ H Negative Urine Ketones Negative Negative Urine Blood Trace H Negative /uL Urine Nitrite Negative Negative Urine Bilirubin Negative Negative Urine Urobilinogen Normal Negative mg/dL Urine Leukocyte Esterase 2+ Negative /uL Urine RBC 7 0 - 4 /hpf Urine Microscopic WBC 24 H 0-5 /HPF Urine Squamous Epithelial Cells Few <5 /hpf Urine Bacteria Many H None Seen /hpf Urine Hyaline Casts Few 0 - 2 /lpf Urine Mucus Few None Seen Urine Creatinine 107.37 30.0-125.0 mg/dL Urine Protein/Creatinine Ratio 0.71 Urine Sodium < 10 L 40-220 mmol/L Urine Glucose Normal Normal mg/dL Urine Total Protein 75.7 H 1-14 mg/dL Test 07/02/25 11:16 07/02/25 09:34 07/02/25 07:42 07/02/25 07:23 Range/Units Vitamin D 25-Hydroxy 37.3 30.0-100 ng/mL Free Thyroxine (T4) Calculated 1.01 0.89-1.76 ng/dL Parathyroid Hormone (Intact) 26.2 18.4-80.1 pg/mL Lactic Acid Level 4.4 *H 0.4-2.0 mmol/L Thyroid Stimulating Hormone (TSH) 2.58 0.55-4.78 uIU/mL Hemoglobin A1c 7.3 H <5.7 % A1C Phosphorus Level 5.7 H 2.4-5.1 mg/dL Magnesium Level 2.9 H 1.6-2.6 mg/dL Creatine Kinase 39 34-145 U/L B-Type Natriuretic Peptide 47.41 0-100 pg/mL Lipase 45 12-53 U/L Microbiology Date/Time Source Procedure Growth Status 07/02/25 07:23 Blood Blood Culture - Preliminary Resulted Assessment/Plan Primary Diagnosis 1. Severe Sepsis 2' Diagnosis/Co-morbidities 2. Acute Renal Failure likely due to VMN Plan: - Admit to telemetry - Antibiotics switched from vancomycin and cefepime to Zyvox and meropenem. - ID, Dr. Corado consulted - Blood cultures show gram-positive cocci in clusters. Repeat blood cultures ordered. - Nephrology consulted for NAHUN, improving with IV fluids - Avoid nephrotoxic medications - Strict I's and O's - Social work consulted for home safety. Patient continues to refuse placement or any other discharge besides home despite living conditions. Patient is alert and oriented x 3. APS report to be filed with case management. - PT eval ordered - Daily CBC and BMP - Full code Plan discussed with: Patient NAOMIE WOOD DO Jul 03, 2025 08:10
[2025-07-03] MEDS ORDERED: LINEZOLID 600MG/300ML 300 ML IV SCH (10:00)
[2025-07-03] MEDS ORDERED: MEROPENEM 500MG IVPB 50 ML IV SCH (10:00)
[2025-07-03] MEDS: ACETAMINOPHEN 325 MG TAB PO PRN (10:58)
[2025-07-03] MEDS: CEFEPIME 2GM/50ML NS 50 ML IV SCH (11:01)
--- NOTE | 2025-07-03 11:51 | DVHPN2 ---
Progress Note Date Seen: Jul 03, 2025 Medical Necessity Reason Pt with a Central, PICC or Fol: No Subjective Other Systems: Patient seen and examined by myself today in follow-up Objective vital signs Vital Sign Date Time Temp Pulse Resp B/P (MAP) Pulse Ox O2 Delivery O2 Flow Rate FiO2 07/03/25 05:00 98.3 84 18 112/60 (77) 99 98.3 07/02/25 20:00 Room Air* 0 21 Total Intake and Output 07/02/25 07/02/25 07/03/25 15:00 23:00 07:00 Intake Total 3500.0 ml 200 ml 175 ml Output Total 1100 ml Balance 3500.0 ml 200 ml -925 ml medications Current Medications Medications Dose Ordered Sig/Karmen Route Start Time Stop Time Status Last Admin Dose Admin Acetaminophen 325 mg Q4HP PRN PO 07/02/25 10:30 07/03/25 10:58 Temazepam 15 mg QHSP PRN PO 07/02/25 10:30 Nitroglycerin 0.4 mg Q5MINP PRN SL 07/02/25 10:30 Morphine Sulfate 2 mg Q30M PRN IV 07/02/25 10:30 Sodium Bicarbonate 50 ml/ Sodium Chloride 1,050 ml @ 100 mls/hr [id number] IV 07/02/25 11:00 07/03/25 01:30 Diagnostic Test (Pha) 1 strip ACHS 07/02/25 17:00 07/03/25 11:01 Insulin Human Regular ACHS SC 07/02/25 17:00 07/03/25 11:37 Dextrose 50 ml UD PRN IV 07/02/25 12:45 Cefepime HCl 50 ml @ 12.5 mls/hr DAILY IV 07/03/25 10:00 07/03/25 11:01 Vancomycin HCl 0 ml @ 0 mls/hr UD IV 07/02/25 23:45 Examination: LUNGS:Normal, CVS:Normal, MSK:Abnormal laboratory and microbiology Laboratory Tests 07/03/25 06:05 Test 07/03/25 06:05 Range/Units Serum Glucose 178 H 74-106 mg/dL Microbiology Date/Time Source Procedure Growth Status 07/02/25 12:18 Voided Urine Urine Culture - Preliminary Resulted 07/02/25 07:23 Blood Blood Culture - Preliminary Resulted Problem List/Assessment/Plan Problem List/Assessment/Plan Acute kidney injury secondary hemodynamic mediated, FeNa < 1% Septic shock Gram-positive bacteremia Bilateral lower extremity cellulitis Diffuse dermatitis rule out immunologic disease Metabolic acidosis Diabetes mellitus type 2, uncontrolled Hyperglycemia Hypernatremia due to dehydration Recommendations Kidney function is improving Increased urine output Strict I&Os IVF 1/2 NS with 20 Meq KCl/L at 100 cc/hour IV antibiotics Check VIC, ANCA, C3, C4, IgE kidney ultrasound reported within normal limit Insulin sliding scale We will continue to follow Plan discussed with: Patient My Orders My Orders Orders - MADHU EMERY MD Procedure Category Date Status Time Glucose Blood PHA 07/02/25 In Process (Accu-Chek Comfort 17:00 Insulin R (Human) PHA 07/02/25 In Process (Insulin R) 17:00 Dextrose 50% Syringe PHA 07/02/25 In Process 12:45 Sod Chl 0.45% With PHA 07/03/25 Logged 20meq Kcl 11:45 MADHU EMERY MD Jul 03, 2025 11:51
[2025-07-03] MEDS: VANCOMYCIN 1GM/250ML KIT 250 ML IV ONE (14:55)
[2025-07-03] MEDS: SOD CHL 0.45% WITH 20MEQ KCL 1,000 ML IV SCH (16:03)
[2025-07-03] MEDS: TEMAZEPAM 15 MG CAP PO PRN (22:08)
[2025-07-04 05:00] VITALS: BP 107/59; PULSE 85; RESP 16; TEMP 97.9; O2SAT 95
--- NOTE | 2025-07-04 07:22 | DVHPN2 ---
Progress Note Date Seen: Jul 04, 2025 Medical Necessity Reason Pt with a Central, PICC or Fol: No Subjective Patient reports: No new complaints Review of Systems: HEENT:Normal, CVS:Normal, RESPIRATORY:Normal, GI:Normal Objective vital signs Vital Sign Date Time Temp Pulse Resp B/P (MAP) Pulse Ox O2 Delivery O2 Flow Rate FiO2 07/04/25 05:00 97.9 85 16 107/59 (75) 95 97.9 07/03/25 20:00 Room Air* 0 21 Total Intake and Output 07/03/25 07/03/25 07/04/25 15:00 23:00 07:00 Intake Total 200 ml 950 ml 300 ml Output Total 600 ml 900 ml Balance 200 ml 350 ml -600 ml medications Current Medications Medications Dose Ordered Sig/Karmen Route Start Time Stop Time Status Last Admin Dose Admin Acetaminophen 325 mg Q4HP PRN PO 07/02/25 10:30 07/03/25 22:08 325 MG Temazepam 15 mg QHSP PRN PO 07/02/25 10:30 07/03/25 22:08 15 MG Nitroglycerin 0.4 mg Q5MINP PRN SL 07/02/25 10:30 Morphine Sulfate 2 mg Q30M PRN IV 07/02/25 10:30 Diagnostic Test (Pha) 1 strip ACHS 07/02/25 17:00 07/04/25 06:21 1 STRIP Insulin Human Regular ACHS SC 07/02/25 17:00 07/03/25 18:10 2 UNITS Dextrose 50 ml UD PRN IV 07/02/25 12:45 Cefepime HCl 50 ml @ 12.5 mls/hr DAILY IV 07/03/25 10:00 07/03/25 11:01 12.5 MLS/HR Vancomycin HCl 0 ml @ 0 mls/hr UD IV 07/02/25 23:45 Potassium Chloride/Sodium Chloride 1,000 ml @ 100 mls/hr Q10H IV 07/03/25 11:45 07/04/25 00:15 100 MLS/HR Examination: GENERAL:Normal, LUNGS:Normal, CVS:Normal, ABDOMEN:Normal laboratory and microbiology Laboratory Tests 07/03/25 06:05 Test 07/03/25 06:05 Range/Units Serum Glucose 178 H 74-106 mg/dL Problem List/Assessment/Plan Problem List/Assessment/Plan 1) Gram positive bacteremia 2) GNR UTI 3) NAHUN 4) Dehydration 5) DM 2 6) Cellulitis plan; labs for this AM not drawn thus ordered, continue IV Abx cefepime and vanco, last wbc 11k on 07/03 and was trending down, nephro on board and on IV fluid hydration with Ct downtrending, will await labs for this AM, continue all care, daily labs, will follow along. PT eval Plan discussed with: Other (n) AIME GIFFORD MD Jul 04, 2025 07:22
[2025-07-04] MEDS ORDERED: CEFEPIME 2GM/50ML NS 50 ML IV SCH (07:45)
[2025-07-04 08:00] VITALS: PULSE 88; RESP 18; O2SAT 97
[2025-07-04 08:28] LABS: Potassium 4.2 mmol/L (3.5-5.1)
[2025-07-04 08:29] LABS: Anion Gap 15 (5-15); Carbon Dioxide 23 mmol/L (20-31)
[2025-07-04 08:34] LABS: BUN/Creatinine Ratio 52.7 (10.0-20.0); Blood Urea Nitrogen 59 mg/dL (9-23); Calcium 7.8 mg/dL (8.7-10.4); Chloride 114 mmol/L (98-107); Glucose 143 mg/dL (74-106); Sodium 152 mmol/L (136-145)
[2025-07-04 09:00] VITALS: BP 112/61; PULSE 85; RESP 18; TEMP 96.9; O2SAT 97
[2025-07-04 09:46] LABS: Hematocrit 37.3 % (36.0-46.0); Hemoglobin 12.2 g/dL (12.2-16.2); Mean Corpuscular Hemoglobin 29.5 pg (28.0-32.0); Mean Corpuscular Volume 90.2 fL (80.0-100.0)
[2025-07-04] MEDS: CEFEPIME 2GM/50ML NS 50 ML IV SCH (10:00)
[2025-07-04 10:24] LABS: Total Cells Counted 100.0 (100)
--- NOTE | 2025-07-04 10:24 | DVHPN2 ---
Progress Note Date Seen: Jul 04, 2025 Medical Necessity Reason Pt with a Central, PICC or Fol: No Subjective Other Systems: Patient seen and examined by myself today in follow-up Objective vital signs Vital Sign Date Time Temp Pulse Resp B/P (MAP) Pulse Ox O2 Delivery O2 Flow Rate FiO2 07/04/25 09:00 96.9 85 18 112/61 (78) 97 96.9 07/03/25 20:00 Room Air* 0 21 Total Intake and Output 07/03/25 07/03/25 07/04/25 15:00 23:00 07:00 Intake Total 200 ml 950 ml 300 ml Output Total 600 ml 900 ml Balance 200 ml 350 ml -600 ml medications Current Medications Medications Dose Ordered Sig/Karmen Route Start Time Stop Time Status Last Admin Dose Admin Acetaminophen 325 mg Q4HP PRN PO 07/02/25 10:30 07/03/25 22:08 325 MG Temazepam 15 mg QHSP PRN PO 07/02/25 10:30 07/03/25 22:08 15 MG Nitroglycerin 0.4 mg Q5MINP PRN SL 07/02/25 10:30 Morphine Sulfate 2 mg Q30M PRN IV 07/02/25 10:30 Diagnostic Test (Pha) 1 strip ACHS 07/02/25 17:00 07/04/25 06:21 1 STRIP Insulin Human Regular ACHS SC 07/02/25 17:00 07/03/25 18:10 2 UNITS Dextrose 50 ml UD PRN IV 07/02/25 12:45 Vancomycin HCl 0 ml @ 0 mls/hr UD IV 07/02/25 23:45 Dextrose 1,000 ml @ 100 mls/hr Q10H IV 07/04/25 08:45 Cefepime HCl 50 ml @ 12.5 mls/hr Q12HR IV 07/04/25 10:00 Enteral Nutritional Formula 240 ml BIDWM PO 07/04/25 18:00 UNV Examination: LUNGS:Normal, CVS:Normal, MSK:Abnormal laboratory and microbiology Laboratory Tests 07/04/25 09:13 07/04/25 07:03 Test 07/04/25 07:03 Range/Units Serum Glucose 143 H 74-106 mg/dL Microbiology Date/Time Source Procedure Growth Status 07/02/25 12:18 Voided Urine Urine Culture - Preliminary Resulted 07/02/25 07:23 Blood Blood Culture - Preliminary Resulted Problem List/Assessment/Plan Problem List/Assessment/Plan Acute kidney injury secondary hemodynamic mediated, FeNa < 1% Septic shock Gram-positive bacteremia Gram-negative UTI Bilateral lower extremity cellulitis Diffuse dermatitis rule out immunologic disease Metabolic acidosis Diabetes mellitus type 2, uncontrolled Hyperglycemia Hypernatremia due to dehydration Recommendations Kidney function is improving Increased urine output Strict I&Os IVF D5W at 100 cc/hour IV antibiotics Check MARIA GUADALUPE, ANCA, C3, C4, IgE kidney ultrasound reported within normal limit Insulin sliding scale We will continue to follow Plan discussed with: Patient My Orders My Orders Orders - MADHU EMERY MD Procedure Category Date Status Time Maria Guadalupe; Comprehensive LAB 07/03/25 In Process Panel 11:44 Immunoglobulin E LAB 07/03/25 In Process 11:44 * Dietary Consult CONS 07/03/25 Transmitted 12:08 Consistent DIET 07/03/25 Transmitted Carb([facility])Diabetes Lunch MADHU EMERY MD Jul 04, 2025 10:24
[2025-07-04] MEDS: D5W 5% 1,000 ML IV SCH (10:40)
[2025-07-04] MEDS ORDERED: LEVO500T91 PO (11:41)
--- NOTE | 2025-07-04 12:13 | DVHCONRES ---
Date Seen: Jul 04, 2025 Resident Creating Document: BOB BABIN RESIDENT Referring Physician krista Reason for Consultation Lower extremity cellulitis History of Present Illness This is a 79-year-old female poor historian, with past medical history of type 2 diabetes mellitus who does not take any medications at home. Patient has history of living in very poor environment full of mold, dust and mices. The patient was recently hospitalized on May 20, 2025 due to a dermatitis rash new onset diabetes mellitus. The patient presented to the ED this time due to left lower extremity cellulitis. Apparently, the patient was found down in her home, living a very poor conditions. Per EMS, they noticed it rates in the scene with feces and very dirty environment. Upon admission, WBC were 17.2, patient was tachycardic, with blood pressure in the lower side. Sepsis protocol was started with broad-spectrum IV antibiotics. Patient was also having NAHUN with lactic acidosis. When asking questions to the patient, the patient states that the rash has been going on for months but states that the cellulitis of the left lower extremity started three weeks back. Information was confirmed with the daughter via phone which states that she does not see her mother for years and they do not have a good relationship at this point. Upon my examination, patient is alert and oriented in person, place and time but speech is slow and have some gap in cognition. Initial chest x-ray was grossly unremarkable with no evidence of consolidations. Renal ultrasound was grossly unremarkable as well. Blood cultures came back showing Gram-positive cocci in clusters/chains and urine culture showing g negative rods. Patient was started on IV vancomycin and cefepime. We will order wound cultures. Past Medical History Type 2 diabetes mellitus and dermatitis rash Past Surgical History Unknown Family History: FH: lung cancer G8 MOTHER Malignant melanoma G8 FATHER Family History Unknown Allergies: Coded Allergies: Diphenhydramine (Verified Allergy, Unknown, 05/20/25) Penicillins (Verified Allergy, Unknown, 05/20/25) Home Meds Active Scripts Levofloxacin Hemihydrate (LEVAQUIN 500 MG) 500 Mg Tab, 1 TAB PO DAILY, #14 TAB Prov:AIME GIFFORD MD 07/04/25 Dexamethasone (Dexamethasone) 2 Mg Tab, 2 MG PO DAILY for 7 Days, #13 TAB 0 Refills Take 3 tablets daily for 2 days, then 2 tablets daily for 2 days, then 1 tablet daily for 2 days, then 1/2 tablet daily for 2 days then stop. Prov:NAOMIE WOOD DO 05/22/25 Current Medications Current Medications Medications (Trade) Dose Ordered Sig/Karmen Route PRN Reason Start Time Stop Time Status Last Admin Cefepime HCl 50 ml @ 12.5 mls/hr Q8HR IV 07/04/25 07:45 07/04/25 08:55 DC Dextrose 1,000 ml @ 100 mls/hr Q10H IV 07/04/25 08:45 07/04/25 10:40 Cefepime HCl 50 ml @ 12.5 mls/hr Q12HR IV 07/04/25 10:00 07/04/25 10:00 Enteral Nutritional Formula (Glucerna Carbsteady SHAKE) 240 ml BIDWM PO 07/04/25 18:00 UNV Review of Systems ROS Constitutional: Reports weakness and fatigue. HEENT: Denies changes in vision and hearing. Respiratory: Denies shortness of breath and cough Cardiovascular: Denies chest discomfort or palpitations GI: Denies abdominal pain, nausea, vomiting and diarrhea. : Denies dysuria and urinary frequency. Musculoskeletal: Reports wound in the left lower extremity. Denies myalgias and joint pain Skin: Reports widespread rash with burning sensation and pruritus in all her body Neurological: Denies dizziness, headache, vision or hearing problems Vital Signs Vital Signs Date Time Temp Pulse Resp B/P (MAP) Pulse Ox O2 Delivery O2 Flow Rate FiO2 07/04/25 09:00 96.9 85 18 112/61 (78) 97 96.9 07/03/25 20:00 Room Air* 0 21 Physical Exam Physical Examination General: Patient alert and oriented in person, place and time. Patient following commands but poor historian HEENT: Normocephalic, atraumatic, moist mucous membranes Respiratory/pulmonary: Clear lungs bilaterally, no associated crackles or wheezes. Cardiovascular: Normal heart sounds S1 and S2 with no associated murmurs Abdomen: Abdomen nondistended, there is no pain to palpation in any of the abdominal quadrants, no palpable masses. Extremities: There is no peripheral edema present at the lower extremities. Skin: There is a widespread erythematous rash with skin peeling all over her body with crusty lesions widespread as well. There is a significant left lower extremity cellulitis with crusted lesions in the left lower extremity at the level of the vargas. Neurological: Intact cranial nerves with no focal neurologic deficits Labs/Diagnostic Data Labs Test 07/04/25 11:34 07/04/25 09:13 07/04/25 07:03 07/03/25 17:35 Range/Units POC Glucose 176 H 70-106 mg/dl White Blood Count 12.9 H 4.4-10.8 10^3/uL Red Blood Count 4.14 4.0-5.20 10^6/uL Hemoglobin 12.2 12.2-16.2 g/dL Hematocrit 37.3 36.0-46.0 % Mean Corpuscular Volume 90.2 80.0-100.0 fL Mean Corpuscular Hemoglobin 29.5 28.0-32.0 pg Mean Corpuscular Hemoglobin Concent 32.6 32.0-36.0 g/dL Red Cell Distribution Width 15.4 H 11.8-14.3 % Platelet Count 121 L 140-450 10^3/uL Mean Platelet Volume 8.4 6.9-10.8 fL Neutrophils (%) (Auto) 37.0-80.0 % Lymphocytes (%) (Auto) 10.0-50.0 % Monocytes (%) (Auto) 0.0-12.0 % Basophils (%) (Auto) 0.0-2.0 % Neutrophils # (Auto) 1.6-8.6 10 ^3/uL Lymphocytes # (Auto) 0.4-5.4 10 ^3/uL Monocytes # (Auto) 0-1.3 10 ^3/uL Differential Total Cells Counted 100.0 100 Neutrophils % (Manual) 71 37.0-80.0 Band Neutrophils % (Manual) 1 Lymphocytes % (Manual) 11 10.0-50.0 Monocytes % (Manual) 15 H 0-12 Eosinophils % (Manual) 2 0-7 Basophils % (Manual) 0 0.0-2.0 Metamyelocytes % (manual) 0 Myelocytes % (Manual) 0 Promyelocytes % (Manual) 0 Blast Cells % (Manual) 0 Reactive Lymphocytes 0 Platelet Estimate Decreased Sodium Level 152 H 136-145 mmol/L Potassium Level 4.2 3.5-5.1 mmol/L Chloride Level 114 H 98-107 mmol/L Carbon Dioxide Level 23 20-31 mmol/L Anion Gap 15 5-15 Blood Urea Nitrogen 59 H 9-23 mg/dL Creatinine 1.12 #H 0.550-1.02 mg/dL Glomerular Filtration Rate Calc 51 >90 mL/min BUN/Creatinine Ratio 52.7 H 10.0-20.0 Serum Glucose 143 H 74-106 mg/dL Calcium Level 7.8 L 8.7-10.4 mg/dL Random Vancomycin Level 12.7 H 5-10 ug/mL Test 07/03/25 06:05 07/02/25 12:47 07/02/25 12:17 07/02/25 11:16 Range/Units Eosinophils (%) (Auto) 0.1 0.0-7.0 % Eosinophils # (Auto) 0 0-0.8 10 ^3/uL Basophils # (Auto) 0 0-0.2 10 ^3/uL Nucleated Red Blood Cells 0.0 % Total Bilirubin 0.5 0.2-1.0 mg/dL Aspartate Amino Transferase (AST) 19 13-40 U/L Alanine Aminotransferase (ALT) 10 7-40 U/L Alkaline Phosphatase 60 46-116 U/L Total Protein 5.7 5.7-8.2 g/dL Albumin 2.9 L 3.2-4.8 g/dL Troponin I High Sensitivity 16 </=34 ng/L Urine Color Light-orange Yellow Urine Clarity Turbid H Clear Urine pH 5.0 5.0-9.0 Urine Specific [place] 1.021 1.001-1.035 Urine Protein 1+ H Negative Urine Ketones Negative Negative Urine Blood Trace H Negative /uL Urine Nitrite Negative Negative Urine Bilirubin Negative Negative Urine Urobilinogen Normal Negative mg/dL Urine Leukocyte Esterase 2+ Negative /uL Urine RBC 7 0 - 4 /hpf Urine Microscopic WBC 24 H 0-5 /HPF Urine Squamous Epithelial Cells Few <5 /hpf Urine Bacteria Many H None Seen /hpf Urine Hyaline Casts Few 0 - 2 /lpf Urine Mucus Few None Seen Urine Creatinine 107.37 30.0-125.0 mg/dL Urine Protein/Creatinine Ratio 0.71 Urine Sodium < 10 L 40-220 mmol/L Urine Glucose Normal Normal mg/dL Urine Total Protein 75.7 H 1-14 mg/dL Creatine Kinase MB 2.7 0.0-5.3 ng/mL Vitamin D 25-Hydroxy 37.3 30.0-100 ng/mL Free Thyroxine (T4) Calculated 1.01 0.89-1.76 ng/dL Parathyroid Hormone (Intact) 26.2 18.4-80.1 pg/mL Test 07/02/25 09:34 07/02/25 07:42 07/02/25 07:23 Range/Units Lactic Acid Level 4.4 *H 0.4-2.0 mmol/L Thyroid Stimulating Hormone (TSH) 2.58 0.55-4.78 uIU/mL Hemoglobin A1c 7.3 H <5.7 % A1C Phosphorus Level 5.7 H 2.4-5.1 mg/dL Magnesium Level 2.9 H 1.6-2.6 mg/dL Creatine Kinase 39 34-145 U/L B-Type Natriuretic Peptide 47.41 0-100 pg/mL Lipase 45 12-53 U/L Microbiology Date/Time Source Procedure Growth Status 07/02/25 12:18 Voided Urine Urine Culture - Preliminary Resulted 07/02/25 07:23 Blood Blood Culture - Preliminary Resulted Assessment Assessment/plan Sepsis likely due to cellulitis of the left lower extremity Acute left lower extremity cellulitis Acute gram positive bacteremia Acute on chronic dermatitis widespread rash Poor hygiene and medication adherence NAHUN due to vasomotor nephropathy UTI Plan -chest x-ray was grossly unremarkable without any evidence of clear consolidations. -renal ultrasound was grossly unremarkable as well. -blood cultures growing Gram-positive cocci in clusters/chains -urine cultures growing Gram-negative rods -Continue vancomycin and cefepime -Monitor kidney function -Ordered wound cultures -Start nystatin powder and triamcinolone topical cream. Goals of care discussed with the patient and friend at bedside and with the daughter via phone. Plan discussed with Dr. Corado Plan discussed with: Patient, Other BOB BABIN RESIDENT Jul 04, 2025 12:13
[2025-07-04 13:00] VITALS: BP 127/64; PULSE 91; RESP 20; TEMP 98.1; O2SAT 97
[2025-07-04] MEDS: VANCOMYCIN 1GM/250ML KIT 250 ML IV SCH (15:01)
[2025-07-04 16:57] VITALS: BP 112/61; PULSE 88; RESP 20; TEMP 98.2; O2SAT 97
[2025-07-04 21:00] VITALS: BP 105/63; PULSE 91; RESP 18; TEMP 98.1; O2SAT 95
[2025-07-04] MEDS: TRIAMCINOLONE ACET 0.1% TOPICAL CREAM 15GM TOP SCH (21:35)
[2025-07-04] MEDS: NYSTATIN TOPICAL POWDER 15GM TOP SCH (21:35)
[2025-07-05 01:00] VITALS: BP 101/56; PULSE 89; RESP 18; TEMP 97.3; O2SAT 95
[2025-07-05 05:00] VITALS: BP 103/58; PULSE 89; RESP 18; TEMP 98.8; O2SAT 95
[2025-07-05 07:06] LABS: Hematocrit 33.7 % (36.0-46.0); Hemoglobin 11.1 g/dL (12.2-16.2); Mean Corpuscular Hemoglobin 29.9 pg (28.0-32.0); Mean Corpuscular Volume 90.8 fL (80.0-100.0); Nucleated Red Blood Cells % 0.1 %
[2025-07-05 07:16] LABS: Chloride 106 mmol/L (98-107); Sodium 142 mmol/L (136-145)
[2025-07-05 07:17] LABS: Anion Gap 10 (5-15); Carbon Dioxide 26 mmol/L (20-31)
[2025-07-05 07:22] LABS: BUN/Creatinine Ratio 22.0 (10.0-20.0); Blood Urea Nitrogen 20 mg/dL (9-23)
[2025-07-05 07:23] LABS: Calcium 7.9 mg/dL (8.7-10.4); Glucose 199 mg/dL (74-106); Potassium 3.5 mmol/L (3.5-5.1)
[2025-07-05 08:00] VITALS: PULSE 91; PULSE 96; RESP 18; O2SAT 97
[2025-07-05] MEDS: Glucerna Carbsteady SHAKE Vanilla 8oz PO SCH (08:00)
[2025-07-05 08:10] VITALS: BP 125/56; PULSE 96; RESP 16; TEMP 99.4; O2SAT 94
[2025-07-05 10:07] LABS: Anti-Centromere B Antibody <0.2 AI (0.0-0.9); Anti-Jo-1 Antibody <0.2 AI (0.0-0.9); Anti-dsDNA Antibody 2 IU/mL (0-9); Antichromatin Antibody <0.2 AI (0.0-0.9); Antiscleroderma-70 Antibody <0.2 AI (0.0-0.9); Sjogren's Anti-SS-A Antibody <0.2 AI (0.0-0.9); Sjogren's Anti-SS-B Antibody <0.2 AI (0.0-0.9)
--- NOTE | 2025-07-05 10:51 | DVHDS2 ---
New Physician D'charge PN Admitting Diagnosis Admitting Diagnosis weakness Discharge Diagnosis gram + bacteremia klebsiella UTI Operations or Procedures none Reason(s) For Hospitalization Surgery Hospital Course 79 F who was found down at home and noted to c/o of generalized weakness. When she arrived to ER her WBC was 17k and Cr 3.1. She was tachycardic and admitted to hospital with broad spectrum IV Abx and IV fluid hydration. Her BCx initially grew coagulase negative S aureus and her UCx showed pansensitive klebsiella. IV Abx vanco/cefepime were continued throughout her hospital course and nephrology saw that patient and eventually her renal function normalized and this AM Cr is 0.9. Her repeat BCx showed no growth. Her WBC has trended down to 13k. She remains afebrile with nml vital signs. She will be discharged home with PO Levaquin x 10 days for UTI/bacteremia. [facility] to arrange for all outpt follow up. Treatment Plan Discharge Condition of Discharge Good Disposition Home with Health Services Discharge Instructions Diet: Consistent carbohydrate, Cardiac 2g Na,low cholest Activity: No Restrictions, As Tolerated Medications: see med sheet Follow Up Care Follow Up/Referral: pcp Discharge Statement: "Patient was advised to return to the ER or call 911 if any headaches, dizziness, shortness of breath, chest pain, abdominal pain, bleeding, fevers, or worsening of medical condition. Patient was counseled about treatment plan, medications, possible side effects, patientverbalized understanding. All questions were answered to the best of my ability. This discharge took greater then 30 minutes in planning, reviewing documentation, counseling the patient, and discussing with other team members." AIME GIFFORD MD Jul 05, 2025 10:51
--- NOTE | 2025-07-05 11:26 | DVHPN2 ---
Progress Note Date Seen: Jul 05, 2025 Medical Necessity Reason Pt with a Central, PICC or Fol: No Subjective Patient reports: No new complaints Other Systems: Patient seen and examined by myself today in follow-up Objective vital signs Vital Sign Date Time Temp Pulse Resp B/P (MAP) Pulse Ox O2 Delivery O2 Flow Rate FiO2 07/05/25 08:10 99.4 96 16 125/56 (79) 94 99.4 07/04/25 20:00 Room Air* 0 21 Total Intake and Output 07/04/25 07/04/25 07/05/25 15:00 23:00 07:00 Intake Total 950 ml 610 ml 150 ml Output Total 900 ml 1150 ml Balance 950 ml -290 ml -1000 ml medications Current Medications Medications Dose Ordered Sig/Karmen Route Start Time Stop Time Status Last Admin Dose Admin Acetaminophen 325 mg Q4HP PRN PO 07/02/25 10:30 07/03/25 22:08 325 MG Temazepam 15 mg QHSP PRN PO 07/02/25 10:30 07/04/25 23:25 15 MG Nitroglycerin 0.4 mg Q5MINP PRN SL 07/02/25 10:30 Morphine Sulfate 2 mg Q30M PRN IV 07/02/25 10:30 Diagnostic Test (Pha) 1 strip ACHS 07/02/25 17:00 07/05/25 05:55 1 STRIP Insulin Human Regular ACHS SC 07/02/25 17:00 07/05/25 06:31 3 UNITS Dextrose 50 ml UD PRN IV 07/02/25 12:45 Vancomycin HCl 0 ml @ 0 mls/hr UD IV 07/02/25 23:45 Dextrose 1,000 ml @ 100 mls/hr Q10H IV 07/04/25 08:45 07/05/25 05:53 100 MLS/HR Cefepime HCl 50 ml @ 12.5 mls/hr Q12HR IV 07/04/25 10:00 07/05/25 10:42 12.5 MLS/HR Enteral Nutritional Formula 240 ml BIDWM PO 07/04/25 18:00 07/05/25 08:00 240 ML Nystatin 1 applic BID TOP 07/04/25 22:00 07/05/25 10:43 1 APPLIC Triamcinolone Acetonide 1 applic BID TOP 07/04/25 22:00 07/05/25 10:43 1 APPLIC Vancomycin HCl 250 ml @ 250 mls/hr DAILY@1500 IV 07/04/25 15:00 07/04/25 15:01 250 MLS/HR Examination: LUNGS:Normal, CVS:Normal, MSK:Abnormal laboratory and microbiology Laboratory Tests 07/05/25 06:18 Test 07/05/25 06:18 Range/Units Serum Glucose 199 H 74-106 mg/dL Microbiology Date/Time Source Procedure Growth Status 07/03/25 17:35 Blood Blood Culture - Preliminary NO GROWTH AFTER 24 HOURS OF INCUBATION. Resulted 07/02/25 12:18 Voided Urine Urine Culture - Final Klebsiella pneumoniae Complete Problem List/Assessment/Plan Problem List/Assessment/Plan Acute kidney injury secondary hemodynamic mediated, FeNa < 1% Septic shock Gram-positive bacteremia Gram-negative UTI Bilateral lower extremity cellulitis Diffuse dermatitis rule out immunologic disease Metabolic acidosis Diabetes mellitus type 2, uncontrolled Hyperglycemia Hypernatremia due to dehydration Recommendations Kidney function is improving Increased urine output Strict I&Os IVF D5W with 40 of KCl at 100 cc/hour IV antibiotics Check VIC, ANCA, C3, C4, IgE kidney ultrasound reported within normal limit Insulin sliding scale We will continue to follow Plan discussed with: Patient Dietary Evaluation Review Comments: Encourage and monitor PO intakes. offer Glucerna BID with meals. F/U with kidney function, may provide Saúl for healing if GFR improves. Add 2GNA restrition to her [facility] diet Expected Outcomes/Goals: gradually healed wounds, improved nutrition status MADHU EMERY MD Jul 05, 2025 11:26
[2025-07-05] MEDS: POTASSIUM CHLORIDE 40 MEQ in D5W 5% 1,000 ML IV SCH (11:30)
--- NOTE | 2025-07-05 11:32 | DVHPNRES ---
Progress Note Date Seen: Jul 05, 2025 Resident Creating Document: BOB BABIN RESIDENT Has the PT tested + for MRSA If YES, has PT been informed?: No Medical Necessity Reason Pt with a Central, PICC or Fol: No Subjective Review of Systems This is a 79-year-old female poor historian, with past medical history of type 2 diabetes mellitus who does not take any medications at home. Patient has history of living in very poor environment full of mold, dust and mices. The patient was recently hospitalized on May 20, 2025 due to a dermatitis rash new onset diabetes mellitus. The patient presented to the ED this time due to left lower extremity cellulitis. Apparently, the patient was found down in her home, living a very poor conditions. Per EMS, they noticed it rates in the scene with feces and very dirty environment. Upon admission, WBC were 17.2, patient was tachycardic, with blood pressure in the lower side. Sepsis protocol was started with broad-spectrum IV antibiotics. Patient was also having NAHUN with lactic acidosis. When asking questions to the patient, the patient states that the rash has been going on for months but states that the cellulitis of the left lower extremity started three weeks back. Information was confirmed with the daughter via phone which states that she does not see her mother for years and they do not have a good relationship at this point. Upon my examination, patient is alert and oriented in person, place and time but speech is slow and have some gap in cognition. Initial chest x-ray was grossly unremarkable with no evidence of consolidations. Renal ultrasound was grossly unremarkable as well. Blood cultures came back showing Gram-positive cocci in clusters/chains and urine culture showing g negative rods. Patient was started on IV vancomycin and cefepime. We will order wound cultures. Patient seen and examined at bedside. Patient is weak, fatigued and sleepy. Patient is alert and oriented in person, place and time. Yesterday, we ordered wound cultures which are still unavailable at this time. Urine culture is growing Klebsiella pneumoniae which is sensitive to multiple antibiotics. Initial blood cultures were showing Gram-positive cocci in clusters and chains but repeated blood cultures are showing no growth so far. We will continue vancomycin and cefepime at this time. Nystatin cream and triamcinolone cream has been applied to the patient's skin dermatitic rash. ROS Constitutional: Denies weight loss, fever and chills. HEENT: Denies changes in vision and hearing. Respiratory: Denies shortness of breath and cough Cardiovascular: Denies chest discomfort or palpitations GI: Denies abdominal pain, nausea, vomiting and diarrhea. : Denies dysuria and urinary frequency. Musculoskeletal: Denies myalgias and joint pain Skin: Reports this time any rash with burning sensation to slight palpation. There is chronic crusted wound in the left vargas that is oozing yellowish fluid. Neurological: Denies dizziness, headache, vision or hearing problems Objective vital signs Vital Sign Date Time Temp Pulse Resp B/P (MAP) Pulse Ox O2 Delivery O2 Flow Rate FiO2 07/05/25 08:10 99.4 96 16 125/56 (79) 94 99.4 07/04/25 20:00 Room Air* 0 21 Total Intake and Output 07/04/25 07/04/25 07/05/25 15:00 23:00 07:00 Intake Total 950 ml 610 ml 150 ml Output Total 900 ml 1150 ml Balance 950 ml -290 ml -1000 ml medications Current Medications Medications Dose Ordered Sig/Karmen Route Start Time Stop Time Status Last Admin Dose Admin Acetaminophen 325 mg Q4HP PRN PO 07/02/25 10:30 07/03/25 22:08 325 MG Temazepam 15 mg QHSP PRN PO 07/02/25 10:30 07/04/25 23:25 15 MG Nitroglycerin 0.4 mg Q5MINP PRN SL 07/02/25 10:30 Morphine Sulfate 2 mg Q30M PRN IV 07/02/25 10:30 Diagnostic Test (Pha) 1 strip ACHS 07/02/25 17:00 07/05/25 05:55 1 STRIP Insulin Human Regular ACHS SC 07/02/25 17:00 07/05/25 06:31 3 UNITS Dextrose 50 ml UD PRN IV 07/02/25 12:45 Vancomycin HCl 0 ml @ 0 mls/hr UD IV 07/02/25 23:45 Cefepime HCl 50 ml @ 12.5 mls/hr Q12HR IV 07/04/25 10:00 07/05/25 10:42 12.5 MLS/HR Enteral Nutritional Formula 240 ml BIDWM PO 07/04/25 18:00 07/05/25 08:00 240 ML Nystatin 1 applic BID TOP 07/04/25 22:00 07/05/25 10:43 1 APPLIC Triamcinolone Acetonide 1 applic BID TOP 07/04/25 22:00 07/05/25 10:43 1 APPLIC Vancomycin HCl 250 ml @ 250 mls/hr DAILY@1500 IV 07/04/25 15:00 07/04/25 15:01 250 MLS/HR Potassium Chloride 40 meq/ Dextrose 1,020 ml @ 100 mls/hr [id number] IV 07/05/25 11:30 UNV Examination Physical Examination General: Patient alert and oriented in person, place and time. Patient following commands but poor historian HEENT: Normocephalic, atraumatic, moist mucous membranes Respiratory/pulmonary: Clear lungs bilaterally, no associated crackles or wheezes. Cardiovascular: Normal heart sounds S1 and S2 with no associated murmurs Abdomen: Abdomen nondistended, there is no pain to palpation in any of the abdominal quadrants, no palpable masses. Extremities: There is no peripheral edema present at the lower extremities. Skin: There is a widespread erythematous rash with skin peeling all over her body with crusty lesions widespread as well. There is a significant left lower extremity cellulitis with crusted lesions in the left lower extremity at the level of the vargas oozing yellowish discoloration. Neurological: Intact cranial nerves with no focal neurologic deficits laboratory and microbiology Laboratory Tests 07/05/25 06:18 Test 07/05/25 06:18 Range/Units Serum Glucose 199 H 74-106 mg/dL Microbiology Date/Time Source Procedure Growth Status 07/03/25 17:35 Blood Blood Culture - Preliminary NO GROWTH AFTER 24 HOURS OF INCUBATION. Resulted 07/02/25 12:18 Voided Urine Urine Culture - Final Klebsiella pneumoniae Complete Problem List/Assessment/Plan Problem List/Assessment/Plan Assessment/plan Sepsis likely due to cellulitis of the left lower extremity Acute left lower extremity cellulitis Acute gram positive bacteremia Acute on chronic dermatitis widespread rash Poor hygiene and medication adherence NAHUN due to vasomotor nephropathy UTI Plan -chest x-ray was grossly unremarkable without any evidence of clear consolidations. -renal ultrasound was grossly unremarkable as well. -blood cultures growing Gram-positive cocci in clusters/chains, second set of blood cultures showing no growth so far. -urine cultures growing Gram-negative rods. (klebsiella pneumoniae) -Continue vancomycin -Stop cefepime -Start levofloxacin 500mg IV daily -Monitor kidney function -Ordered wound cultures, still pending -continue nystatin powder and triamcinolone topical cream. Goals of care discussed with the patient and friend at bedside and with the daughter via phone. Plan discussed with Dr. Corado Plan discussed with: Patient My Orders My Orders Orders - BOB BABIN Procedure Category Date Status Time Drug Screen LAB 07/04/25 Logged 12:09 Wound Culture W/ Gs VIRGILIO 07/04/25 In Process 12:12 Nystatin Powder PHA 07/04/25 In Process (Mycostatin Powder) 22:00 Triamcinolone 0.1 PHA 07/04/25 In Process Topical Cr (Kenalog 0. 22:00 * Teacher Education Director CONS 07/04/25 Transmitted Consult Dietary Evaluation Review Comments: Encourage and monitor PO intakes. offer Glucerna BID with meals. F/U with kidney function, may provide Saúl for healing if GFR improves. Add 2GNA restrition to her [facility]-45 diet Expected Outcomes/Goals: gradually healed wounds, improved nutrition status BOB BAIBN RESIDENT Jul 05, 2025 11:32
[2025-07-05 12:10] VITALS: BP 116/68; PULSE 122; RESP 17; TEMP 101.3; O2SAT 93
[2025-07-05] MEDS ORDERED: ACETAMINOPHEN 325 MG TAB PO PRN (13:45)
[2025-07-05] MEDS: ACETAMINOPHEN IV 1000 MG/100ML (10MG/ML) IV ONE (14:24)
[2025-07-05 15:15] VITALS: BP 116/68; PULSE 98; RESP 17; TEMP 98.3; O2SAT 95
== END 2025-07-05 16:25 | disposition home health service (06) | DRG 871 ==
LOC: ER 06:28 → EDBD 06:28 → OVERFLOW 10:30 → TELE-WESTW 17:13
PROVIDERS: ADMIT Student in an Organized Health Care Education/Training Program; ATTEND Student in an Organized Health Care Education/Training Program
PROC: 05HC33Z Insertion of Infusion Device into Left Basilic Vein, Percutaneous Approach (ICD-10-PCS; principal; 2025-07-02)
PROC: B54NZZA Ultrasonography of Left Upper Extremity Veins, Guidance (ICD-10-PCS; 2025-07-02)
DX: A41.89 Other specified sepsis (principal); J15.69 Pneumonia due to other Gram-negative bacteria; N17.0 Acute kidney failure with tubular necrosis; J15.9 Unspecified bacterial pneumonia; N39.0 Urinary tract infection, site not specified; E87.20 Acidosis, unspecified; L03.116 Cellulitis of left lower limb; L03.115 Cellulitis of right lower limb; E87.0 Hyperosmolality and hypernatremia; L25.9 Unspecified contact dermatitis, unspecified cause; E86.0 Dehydration; E11.65 Type 2 diabetes mellitus with hyperglycemia; B96.1 Klebsiella pneumoniae [K. pneumoniae] as the cause of diseases classified elsewhere; Z88.0 Allergy status to penicillin; Z88.8 Allergy status to other drugs, medicaments and biological substances; Z80.1 Family history of malignant neoplasm of trachea, bronchus and lung; Z80.8 Family history of malignant neoplasm of other organs or systems
CPT/HCPCS: 36415; 71045; 76775; 80048; 80053; 80202; 81001; 82306; 82550; 82553; 82570; 82785; 82962; 83036; 83516; 83520; 83605; 83690; 83735; 83880; 83970; 84100; 84156; 84300; 84439; 84443; 84484; 85007; 85025; 85027; 86160; 86225; 86235; 86256; 87040; 87077; 87081; 87086; 87088; 87186; 87205; 96365; 97110; 97163; 99291; G0378; J0131; J0692; J1815; J1956; P9047

== ENCOUNTER 2025-07-06 22:37 | Inpatient (IN) | payer OTHER ==
[~2025-07-06] VITALS: Ht 157.5 cm; Wt 65.0 kg
[~2025-07-06 22:37] MED LIST changes: -DEXA2TAB PO; +LEVO500T91 PO
--- NOTE | 2025-07-06 22:55 | ED.PDOC ---
History of Present Illness HPI Comments 79-year-old female who came to ER via EMS for failure to thrive. Patient was discharged home yesterday with PO Levaquin x 10 days for UTI/bacteremia. found patient earlier at home, unable to take care of herself, she is bed-bound. Patient was living in very poor conditions, rat infested. So patient was brought to the ER for evaluation and management Chief Complaint: Failure to Thrive Time Seen by MD: 22:53 Reviewed Notes: Seamless Tube Drawer Notes Allergies: Coded Allergies: Diphenhydramine (Verified Allergy, Unknown, 05/20/25) Penicillins (Verified Allergy, Unknown, 05/20/25) Home Meds Active Scripts Levofloxacin Hemihydrate (LEVAQUIN 500 MG) 500 Mg Tab, 1 TAB PO DAILY, #14 TAB Prov:AIME GIFFORD MD 07/04/25 Discontinued Scripts Dexamethasone (Dexamethasone) 2 Mg Tab, 2 MG PO DAILY for 7 Days, #13 TAB 0 Refills Take 3 tablets daily for 2 days, then 2 tablets daily for 2 days, then 1 tablet daily for 2 days, then 1/2 tablet daily for 2 days then stop. Prov:NAOMIE WOOD DO 05/22/25 Information Source: Emergency Med Personnel Mode of Arrival: EMS Severity: Moderate Timing: Days Duration: Since onset Past Medical History PAST MEDICAL HISTORY: UTI'S Surgical History: Denies all surgeries SUPERVISING DEPUTY History: Denies all SUPERVISING DEPUTY Hx Family History Family History: Reviewed,noncontributory to illness Social History Smoker: Non-Smoker Alcohol: Denies ETOH Use Drugs: Denies Drug Use Lives In: Home Unable to Obtain due to: Altered Mental Status Physical Exam General Appearance: No Apparent Distress, Normal HEENT: Normal ENT Inspection, Pharynx Normal, TMs Normal Neck: Full Range of Motion, Non-Tender, Normal, Normal Inspection Respiratory: Chest Non-Tender, Lungs Clear, No Accessory Muscle Use, No Respiratory Distress, Normal Breath Sounds Cardiovascular: No Edema, No JVD, No Murmur, No Gallop, Normal Peripheral Pulses, Regular Rate/Rhythm Breast Exam: Deferred Gastrointestinal: No Organomegaly, Non Tender, No Pulsatile Mass, Normal Bowel Sounds, Soft Genitalia: Deferred Pelvic: Deferred Rectal: Deferred Extremities: No calf tenderness, Normal capillary refill, Normal inspection, Normal range of motion, Non-tender, No pedal edema Musculoskeletal : Apperance: Normal Neurologic: Alert, night shift supervisor II-XII nml as Tested, No Motor Deficits, Normal Affect, Normal Mood, No Sensory Deficits Cerebellar Function: Normal Reflexes: Normal Skin: Dry, Normal Color, Warm Lymphatic: No Adenopathy Was a procedure done? Was a procedure done?: No Differential Dx Considerations may include: Anemia, electrolyte imbalance, urinary tract infection, failure to thrive X-Ray, Labs, Meds, VS Vital Signs Date Time Temp Pulse Resp B/P (MAP) Pulse Ox O2 Delivery O2 Flow Rate FiO2 07/06/25 22:50 99.1 103 16 105/70 94 99.1 Lab Test 07/06/25 23:11 Range/Units White Blood Count 33.8 #*H 4.4-10.8 10^3/uL Red Blood Count 4.70 4.0-5.20 10^6/uL Hemoglobin 13.7 # 12.2-16.2 g/dL Hematocrit 41.4 # 36.0-46.0 % Mean Corpuscular Volume 88.1 80.0-100.0 fL Mean Corpuscular Hemoglobin 29.1 28.0-32.0 pg Mean Corpuscular Hemoglobin Concent 33.0 32.0-36.0 g/dL Red Cell Distribution Width 15.7 H 11.8-14.3 % Platelet Count 125 L 140-450 10^3/uL Mean Platelet Volume 8.7 6.9-10.8 fL Neutrophils (%) (Auto) 37.0-80.0 % Lymphocytes (%) (Auto) 10.0-50.0 % Monocytes (%) (Auto) 0.0-12.0 % Basophils (%) (Auto) 0.0-2.0 % Neutrophils # (Auto) 1.6-8.6 10 ^3/uL Lymphocytes # (Auto) 0.4-5.4 10 ^3/uL Monocytes # (Auto) 0-1.3 10 ^3/uL Differential Total Cells Counted Pending Neutrophils % (Manual) Pending Band Neutrophils % (Manual) Pending Lymphocytes % (Manual) Pending Monocytes % (Manual) Pending Eosinophils % (Manual) Pending Basophils % (Manual) Pending Metamyelocytes % (manual) Pending Myelocytes % (Manual) Pending Promyelocytes % (Manual) Pending Blast Cells % (Manual) Pending Reactive Lymphocytes Pending Platelet Estimate Pending Sodium Level 147 #H 136-145 mmol/L Potassium Level 3.5 3.5-5.1 mmol/L Chloride Level 105 98-107 mmol/L Carbon Dioxide Level 26 20-31 mmol/L Anion Gap 16 H 5-15 Blood Urea Nitrogen 30 #H 9-23 mg/dL Creatinine 1.24 #H 0.550-1.02 mg/dL Glomerular Filtration Rate Calc 45 >90 mL/min BUN/Creatinine Ratio 24.2 H 10.0-20.0 Serum Glucose 213 H 74-106 mg/dL Lactic Acid Level 1.8 0.4-2.0 mmol/L Calcium Level 8.8 8.7-10.4 mg/dL Troponin I High Sensitivity 21 </=34 ng/L Time of 1ST Reevaluation: 22:54 Reevaluation 1ST: Unchanged Patient Education/Counseling: Diagnosis, Treatment Family Education/Counseling: No Family Present SEPSIS Sepsis Screen Physician Orders Complete Blood Count (07/06/25 22:52) Blood Culture (07/06/25 22:52) Urinalysis (07/06/25 22:52) Chest Portable (07/06/25 22:52) Manual Differential (07/06/25 23:11) Sodium Chloride 0.9% (07/06/25 23:45) Cefepime 2gm/50ml Ns (Maxipime 2gm/50ml) (07/06/25 23:45) Vancomycin 1gm/250ml Kit (07/06/25 23:45) Vital Signs Date Time Temp Pulse Resp B/P (MAP) Pulse Ox O2 Delivery O2 Flow Rate FiO2 07/06/25 22:50 99.1 103 16 105/70 94 99.1 Laboratory Tests Test 07/06/25 23:11 Lactic Acid Level 1.8 mmol/L (0.4-2.0) White Blood Count 33.8 10^3/uL (4.4-10.8) #*H Departure 1 Departure Time of Disposition: 00:15 (Patient presented with sepsis. Empirically cover patient with antibiotics fluids. We will admit patient for further workup and expert consultation) Impression: Primary Impression: Sepsis Qualified Codes: A41.9 - Sepsis, unspecified organism; R65.21 - Severe sepsis with septic shock; G72.81 - Critical illness myopathy Additional Impression: Generalized weakness Disposition: 09 ADMITTED INPATIENT Admit to: Tele Condition: Guarded Critical Care Note Critical Care Time?: Yes Critical care comment: Septic shock Authorized and Performed by: Emilie Ryder MD Total critical care time: Approximately 44 minutes Due to a high probability of clinically significant, life threatening deterioration, the patient required my highest level of preparedness to intervene emergently and I personally spent this critical care time directly and personally managing the patient. This critical care time included obtaining a history; examining the patient; pulse oximetry; ordering and review of studies; arranging urgent treatment with development of a management plan; evaluation of patient's response to treatment; frequent reassessment; and, discussions with other providers. This critical care time was performed to assess and manage the high probability of imminent, life-threatening deterioration that could result in multi-organ failure. It was exclusive of separately billable procedures and treating other patients and teaching time. Please see my other sections and the rest of the note for further information on patient assessment and treatment. Stability Stability form required: No Heart Score Heart Score: Heart Score Response (Comments) Value History N/A 0 EKG N/A 0 Age N/A 0 Risk Factors N/A 0 Troponin N/A 0 Total 0 I personally scribed for EMILIE RYDER MD (OSMIN) on 07/06/25 at 22:55. Electronically submitted by Clifford Davis (Criptext). I personally scribed for EMILIE RYDER MD (SURYA) on 07/06/25 at 22:58. Electronically submitted by Clifford Davis (Criptext). EMILIE RYDER MD Jul 06, 2025 22:55
[2025-07-06 23:22] LABS: Hemoglobin 13.7 g/dL (12.2-16.2)
[2025-07-06 23:23] LABS: Hematocrit 41.4 % (36.0-46.0); Mean Corpuscular Hemoglobin 29.1 pg (28.0-32.0); Mean Corpuscular Volume 88.1 fL (80.0-100.0)
--- NOTE | 2025-07-06 23:25 | DVH ---
CHEST RADIOGRAPH Indication: weakness Technique: Single frontal view of the chest was obtained COMPARISON: XY CHEST PORTABLE on DOS: 07/02/25 FINDINGS: Lines and Tubes: None Lungs: Moderate bilateral perihilar pulmonary airspace disease. Pleura: No effusion. No pneumothorax. Cardiomediastinal contours: Unremarkable Bones: Unremarkable IMPRESSION: 1. Moderate bilateral perihilar pulmonary airspace disease.
[2025-07-06 23:32] LABS: Chloride 105 mmol/L (98-107); Potassium 3.5 mmol/L (3.5-5.1)
[2025-07-06 23:33] LABS: Anion Gap 16 (5-15); Carbon Dioxide 26 mmol/L (20-31)
[2025-07-06 23:34] LABS: Calcium 8.8 mg/dL (8.7-10.4)
[2025-07-06 23:38] LABS: BUN/Creatinine Ratio 24.2 (10.0-20.0)
[2025-07-06 23:40] VITALS: PULSE 102; RESP 23; O2SAT 90
[2025-07-06 23:40] LABS: Blood Urea Nitrogen 30 mg/dL (9-23); Glucose 213 mg/dL (74-106); Sodium 147 mmol/L (136-145)
[2025-07-07] VITALS (7 sets, daily range): BP systolic 100–105; BP diastolic 55–70; PULSE 78–103; RESP 12–19; TEMP 98–99.1; O2SAT 94–95
[2025-07-07 00:32] LABS: Anisocytosis Slight; Total Cells Counted 100.0 (100)
[2025-07-07] MEDS: SODIUM CHLORIDE 0.9% 1,500 ML IV ONE (00:37)
[2025-07-07] MEDS: VANCOMYCIN 1GM/250ML KIT 250 ML IV ONE (00:45)
[2025-07-07] MEDS: CEFEPIME 2GM/50ML NS 50 ML IV ONE (00:47)
[2025-07-07] MEDS ORDERED: ONDANSETRON HCL 4 MG/2 ML VIAL IV PRN (01:00)
[2025-07-07] MEDS ORDERED: VANCOMYCIN 1GM/250ML KIT 250 ML IV SCH (01:00)
[2025-07-07] MEDS ORDERED: SODIUM CHLORIDE 0.9% 1,000 ML IV SCH (01:00)
[2025-07-07] MEDS ORDERED: ALBUTEROL SULF 2.5 MG/0.5ML(0.5%) NEB SOLN NEB PRN (01:15)
[2025-07-07] MEDS ORDERED: ACETAMINOPHEN 325 MG TAB PO PRN (01:15)
[2025-07-07] MEDS ORDERED: MORPHINE SULFATE INJ 2 MG/ml SYRG IV PRN (01:45)
[2025-07-07] MEDS ORDERED: DEXTROSE (50%) 50ML SYRG IV PRN (01:45)
[2025-07-07] MEDS ORDERED: NITROGLYCERIN 0.4 MG SL TAB SL PRN (01:45)
--- NOTE | 2025-07-07 02:54 | DVHHP ---
ADMIT DATE: 07/07/2025 CHIEF COMPLAINT: Was brought in by [facility] Department. HISTORY OF PRESENT ILLNESS: This is a 79-year-old female with a significant past medical history for diabetes mellitus type 2, who apparently lives at home alone and was recently admitted here on 07/03/2025 secondary to being found down at home in very poor living conditions. Apparently, EMS noted at the time that the patient had rats and feces all over her home. The patient when presenting here seems to have been in sepsis with bilateral lower extremity cellulitis with a fairly extensive wound of her left lower extremity extending from her ankle up to her upper shins. The patient was kept here for IV fluid hydration and broad spectrum antibiotics and had positive blood cultures with multiple species. The patient was eventually given the option to go to a rehab facility apparently for further hydration and antibiotics, but the patient wanted to go home. Apparently, the [facility] department was doing a routine visit from her previous incident as a followup. Found the patient again in poor condition and unable to care for herself, and they brought her in here for an assessment. The patient was found to be with leukocytosis and fevers as high as 101.3 as well as tachycardia. The patient was given fluids, IV antibiotics, and was called for further assessment. The patient seems to be alert to self, knows she is at a hospital. She can tell me the year, but she does not keep up with the month and knows that the president is Pb Meyer. The patient has been very weak. She has not been able to turkey picker her prescriptions on discharge and has not been administering any medications to include her diabetic medications at home. The patient says that she has help at home, but from the looks of it and from the history that I have gathered from the Emergency Room and EMS, it does not seem that the patient has any help at home. The patient says that she has not had any fevers or chills, shortness of breath, chest pain, nausea, or vomiting. She has had some new onset of cough with some yellowish phlegm, which she has not had in the past. PAST MEDICAL HISTORY: The patient denies, but has an underlying history of diabetes mellitus type 2. It seems that the patient does not take any medications for diabetes. 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 SOCIAL HISTORY: Denies any tobacco, alcohol, or illicit drugs. MEDICATIONS AT HOME: The patient denies taking any medications. MEDICATION ALLERGIES: TO PENICILLIN. REVIEW OF SYSTEMS: A 10-point review of systems was covered with the patient and was negative with exception to what was present in the history of present illness. PHYSICAL EXAMINATION: VITAL SIGNS: Temperature currently of 99.1, temperature maximum 101.3, blood pressure of 116/68, pulse rate of 122, respiratory rate 17 with a pulse oximetry of 93% on room air. GENERAL: She seems to be alert and oriented to self, to hospital, and to the year, but not the month, but also is alert to her current situation. HEENT: The patient does have dry skin kind of around her neck and face area. It seems to be uncleansed. Normocephalic, atraumatic. Extraocular muscles were intact. Pupils were equally round and reactive to light and accommodation. Mucous membranes were dry. Dental hygiene is very poor. Body hygiene is significantly poor. CARDIOVASCULAR: S1, S2 positive. Regular rate and rhythm. No rubs, gallops or murmurs. LUNGS: Seems to be with slight posterior base rales. No wheezing or rhonchi. ABDOMEN: Seems to be soft, nontender, and nondistended. Positive bowel sounds. EXTREMITIES: The patient has a left lower extremity wound extending from her lower shins up to her lateral upper vargas region with desquamation of the skin. Some erythema as well as warmth to touch is present. Right lower extremity also has some warmth to touch on examination. Nonpitting edema is also present. NEUROLOGIC: No focal deficits on examination. Cranial nerves testing 2-12 all seems to be intact. LABORATORY WORKUP: Shows a white count of 33,800, H and H of 13.7/41.4 with a platelet count of 125,000, sodium of 147, potassium of 3.5, chloride of 105, carbon dioxide of 26, anion gap of 16, BUN of 30, creatinine 1.24, glucose of 213, lactic acid 1.8, calcium 8.8, troponins of 21, vancomycin random was 12.7. New blood cultures have been ordered. IMAGING: Chest x-ray shows moderate bilateral perihilar pulmonary airspace disease. DIAGNOSES: * Sepsis. * Bilateral patchy lung disease. * Dehydration. * Acute kidney injury. SECONDARY DIAGNOSIS: Diabetes mellitus type 2. PLAN: The patient will be admitted to medical telemetry floor for continuous cardiopulmonary monitoring under observation status. Consultation with Infectious Disease has been requested. The patient has been placed on cefepime 2 g IV q.8 as well as vancomycin per pharmacy. The patient's recent hospitalization and blood cultures were reviewed. The patient did grow Klebsiella pneumoniae sensitive to cefepime as well as Staphylococcus epidermidis sensitive to vancomycin and finally Streptococcus mitis, which was sensitive to cefepime, which all these bacteria are currently being covered. We will await further recommendations by Infectious Disease. Additionally, the patient does seem to have developed slight hypernatremia in the setting of dehydration. The patient will be initiated on half NS, D5W at 100 mL an hour. We will implement strict I's and O's. We will have daily CBCs and BMPs for continuous white count as well as renal function monitoring. The patient will be placed on a diabetic diet with Accu-Cheks q.6 hours with a low-dose regular insulin sliding scale. We will order also a lipid panel for the morning to assess the patient for hyperlipidemia given that she has underlying diabetes. The patient again does not take any current medications at home. The patient has also been ordered wound care assessment and treatment for her bilateral lower extremities. The patient again has a recent diagnosis of bilateral lower extremity cellulitis secondary to what seems to be bilateral lower extremity cellulitis that has been recently diagnosed and treated. We will continue treatment during this hospital course and we will await further recommendations by wound care. The patient is to have Lovenox 40 mg subcutaneous daily for DVT prophylaxis. The patient is a full code. Further recommendations will depend on patient's progression. Jordon Wilburn MD LM/EVANS TID: [id number] RECEIPT: [id number]
[2025-07-07 05:15] LABS: Urine Protein, UAD 1+ (Negative)
[2025-07-07] MEDS: POTASSIUM CHL 20MEQ/100ML 100 ML IV ONE (05:30)
[2025-07-07] MEDS: InsuLIN REG 1unit/0.01ml Soln (100units/ml) SC SCH ×2 (06:49→21:47)
[2025-07-07] MEDS: ACCU-CHEK COMFORT CURVE STRIP VI SCH (06:49)
[2025-07-07 06:57] LABS: Cholesterol 125 mg/dL (< 200)
[2025-07-07 06:58] LABS: HDL Cholesterol 27 mg/dL (40-59); Triglycerides 221 mg/dL (< 150)
--- NOTE | 2025-07-07 07:10 | ECG ---
[facility] Test Date: 2025-07-07 Test Time: 00:22:21 Pat Name: SHAYNA CANTRELL Department: [facility] ED Patient ID: [facility]-[id number] Room: 0216T Gender: F Asphalt Worker: jann : 1945 Requested By: EMILIE RYDER Order Number: [id number] Reading MD: Alvarado Rao Measurements Intervals [place] Rate: 100 P: 66 NE: 157 QRS: -12 QRSD: 76 T: 66 QT: 331 QTc: 427 Interpretive Statements Sinus tachycardia Low voltage, precordial leads Probable anteroseptal infarct, old Electronically Signed On 07-09-2025 15:07:56 PDT by Alvarado Rao Please click the below link to view image of tracing.
[2025-07-07 07:53] LABS: Anion Gap 12 (5-15); Carbon Dioxide 25 mmol/L (20-31)
[2025-07-07 07:54] LABS: Hematocrit 38.5 % (36.0-46.0); Hemoglobin 12.4 g/dL (12.2-16.2); Mean Corpuscular Hemoglobin 29.1 pg (28.0-32.0); Mean Corpuscular Volume 90.3 fL (80.0-100.0); Nucleated Red Blood Cells % 0.0 %
[2025-07-07] MEDS: SOD CHL 0.45% 1,000 ML IV SCH (07:54)
[2025-07-07 07:58] LABS: BUN/Creatinine Ratio 25.2 (10.0-20.0)
[2025-07-07 08:00] LABS: Blood Urea Nitrogen 28 mg/dL (9-23); Calcium 7.7 mg/dL (8.7-10.4); Chloride 111 mmol/L (98-107); Glucose 192 mg/dL (74-106); Potassium 3.3 mmol/L (3.5-5.1); Sodium 148 mmol/L (136-145)
[2025-07-07] MEDS ORDERED: VANCOMYCIN PER PHARMACY 0 MG IV SCH (09:15)
[2025-07-07] MEDS: D5W 5% 1,000 ML IV SCH (09:20)
[2025-07-07] MEDS: POTASSIUM CHL 20 Meq TABLET PO ONE (09:35)
[2025-07-07] MEDS: CEFEPIME 2GM/50ML NS 50 ML IV SCH (11:37)
--- NOTE | 2025-07-07 14:12 | DVH ---
EXAM: CT CHEST WITHOUT CONTRAST INDICATION: pna TECHNIQUE: Noncontrast axial images of the chest have been obtained along with coronal and sagittal r eformatted images. All CT scans at this facility use dose modulation, iterative reconstruction, and/o r weight based dosing when appropriate to reduce radiation dose to as low as reasonably achievable. COMPARISON: XY CHEST PORTABLE on DOS: 07/06/25 FINDINGS: LOWER NECK: Unremarkable LYMPH NODES/MEDIASTINUM: No abnormal lymph nodes by CT size criteria CARDIOVASCULAR: Normal cardiac size. No pericardial effusion. No aneurysmal dilatation of the great v essels. Coronary artery calcifications. UPPER ABDOMEN: Unremarkable. MUSCULOSKELETAL: Age-indeterminate T12 vertebral body fracture with 50 percent anterior to central he ight loss and slight 2-3 mm posterior superior endplate retropulsion. Multilevel degenerative change of the visualized spine. CHEST WALL: Left breast mass measuring 2 x 3.9 cm LUNG PARENCHYMA/PLEURAL SPACE: Bibasilar consolidations in bilateral lower lobes with air bronchogram s. Paraseptal and hazy ground-glass nodules in the posterior aspect of the right upper lobe. IMPRESSION: 1. Bibasilar consolidations with air bronchograms concerning for multifocal pneumonia. Correlate for aspiration related pneumonia. 2. Paraseptal and hazy ground-glass nodules in the posterior aspect of the right upper lobe. 3. Left breast mass measuring 2 x 3.9 cm. Recommend dedicated mammographic workup. 4. Age-indeterminate T12 vertebral body fracture with 50 percent anterior to central height loss and slight 2-3 mm posterior superior endplate retropulsion.
--- NOTE | 2025-07-07 14:27 | DVHINCON2 ---
Date of service: Jul 07, 2025 Family History: FH: lung cancer G8 MOTHER Malignant melanoma G8 FATHER Allergies: Coded Allergies: Diphenhydramine (Verified Allergy, Unknown, 05/20/25) Penicillins (Verified Allergy, Unknown, 05/20/25) Home Meds Active Scripts Levofloxacin Hemihydrate (LEVAQUIN 500 MG) 500 Mg Tab, 1 TAB PO DAILY, #14 TAB Prov:AIME GIFFORD MD 07/04/25 Discontinued Scripts Dexamethasone (Dexamethasone) 2 Mg Tab, 2 MG PO DAILY for 7 Days, #13 TAB 0 Refills Take 3 tablets daily for 2 days, then 2 tablets daily for 2 days, then 1 tablet daily for 2 days, then 1/2 tablet daily for 2 days then stop. Prov:NAOMIE WOOD DO 05/22/25 Current Medications Current Medications Medications (Trade) Dose Ordered Sig/Karmen Route PRN Reason Start Time Stop Time Status Last Admin Cefepime HCl 50 ml @ 12.5 mls/hr Q12H IV 07/07/25 12:00 07/07/25 11:37 Vancomycin HCl 250 ml @ 250 mls/hr Q12H IV 07/07/25 01:00 UNV Ondansetron HCl (Zofran) 4 mg Q6HPRN PRN IV NAUSEA / VOMITING 07/07/25 01:00 Sodium Chloride 1,000 ml @ 125 mls/hr Q8H IV 07/07/25 01:00 07/07/25 02:02 DC Albuterol (Ventolin Medneb) 2.5 mg Q6HPRN PRN NEB SHORTNESS OF BREATH 07/07/25 01:15 Acetaminophen (Tylenol Tablet) 650 mg Q4HP PRN PO TEMP GREATER THAN 100.4 07/07/25 01:15 Nitroglycerin (Ntrostat Sublingual) 0.4 mg Q5MINP PRN SL FOR CHEST PAIN 07/07/25 01:45 Morphine Sulfate 2 mg Q30M PRN IV FOR CHEST PAIN 07/07/25 01:45 Diagnostic Test (Pha) (Accu-Chek Comfort Curve T) 1 strip ACHS 07/07/25 07:00 07/07/25 11:35 Insulin Human Regular (InsuLIN R) HS SC 07/07/25 22:00 Insulin Human Regular (InsuLIN R) AC SC 07/07/25 07:00 07/07/25 11:38 Dextrose 50 ml UD PRN IV Blood Sugar LESS THAN 60 07/07/25 01:45 Sodium Chloride 1,000 ml @ 100 mls/hr Q10H IV 07/07/25 02:00 07/07/25 08:10 DC 07/07/25 07:54 Dextrose 1,000 ml @ 75 mls/hr [id number] IV 07/07/25 08:15 07/07/25 09:20 Vancomycin HCl 0 ml @ 0 mls/hr UD IV 07/07/25 09:15 Vancomycin HCl 250 ml @ 200 mls/hr Q24H IV 07/08/25 04:00 Vital Signs Vital Signs Date Time Temp Pulse Resp B/P (MAP) Pulse Ox O2 Delivery O2 Flow Rate FiO2 07/07/25 10:30 86 22 107/53 (71) 95 07/07/25 08:30 97.5 97.5 07/07/25 08:00 Nasal Cannula* 2 28 Labs/Diagnostic Data Labs Test 07/07/25 11:35 07/07/25 06:02 07/07/25 04:32 07/06/25 23:11 Range/Units POC Glucose 159 H 70-106 mg/dl White Blood Count 27.7 H 4.4-10.8 10^3/uL Red Blood Count 4.26 4.0-5.20 10^6/uL Hemoglobin 12.4 12.2-16.2 g/dL Hematocrit 38.5 36.0-46.0 % Mean Corpuscular Volume 90.3 80.0-100.0 fL Mean Corpuscular Hemoglobin 29.1 28.0-32.0 pg Mean Corpuscular Hemoglobin Concent 32.2 32.0-36.0 g/dL Red Cell Distribution Width 16.0 H 11.8-14.3 % Platelet Count 101 L 140-450 10^3/uL Mean Platelet Volume 9.0 6.9-10.8 fL Neutrophils (%) (Auto) 92.3 H 37.0-80.0 % Lymphocytes (%) (Auto) 3.5 L 10.0-50.0 % Monocytes (%) (Auto) 4.1 0.0-12.0 % Eosinophils (%) (Auto) 0.0 0.0-7.0 % Basophils (%) (Auto) 0.1 0.0-2.0 % Neutrophils # (Auto) 25.5 H 1.6-8.6 10 ^3/uL Lymphocytes # (Auto) 1.0 0.4-5.4 10 ^3/uL Monocytes # (Auto) 1.1 0-1.3 10 ^3/uL Eosinophils # (Auto) 0 0-0.8 10 ^3/uL Basophils # (Auto) 0 0-0.2 10 ^3/uL Nucleated Red Blood Cells 0.0 % Sodium Level 148 H 136-145 mmol/L Potassium Level 3.3 L 3.5-5.1 mmol/L Chloride Level 111 H 98-107 mmol/L Carbon Dioxide Level 25 20-31 mmol/L Anion Gap 12 5-15 Blood Urea Nitrogen 28 H 9-23 mg/dL Creatinine 1.11 H 0.550-1.02 mg/dL Glomerular Filtration Rate Calc 51 >90 mL/min BUN/Creatinine Ratio 25.2 H 10.0-20.0 Serum Glucose 192 H 74-106 mg/dL Calcium Level 7.7 L 8.7-10.4 mg/dL Triglycerides Level 221 H < 150 mg/dL Cholesterol Level 125 < 200 mg/dL LDL Cholesterol 56 < 100 mg/dL HDL Cholesterol 27 L 40-59 mg/dL Urine Color Yellow Yellow Urine Clarity Turbid H Clear Urine pH 5.5 5.0-9.0 Urine Specific Davis 1.018 1.001-1.035 Urine Protein 1+ H Negative Urine Ketones 1+ H Negative Urine Blood 2+ H Negative /uL Urine Nitrite Negative Negative Urine Bilirubin Negative Negative Urine Urobilinogen Normal Negative mg/dL Urine Leukocyte Esterase Negative Negative /uL Urine RBC 1 0 - 4 /hpf Urine Microscopic WBC 3 0-5 /HPF Urine Squamous Epithelial Cells Few <5 /hpf Urine Renal Epithelial Cells Few None Seen /hpf Urine Bacteria Few H None Seen /hpf Urine Hyaline Casts Few 0 - 2 /lpf Urine Granular Casts Few 0 /lpf Urine Glucose 4+ H Normal mg/dL Differential Total Cells Counted 100.0 100 Neutrophils % (Manual) 85 H 37.0-80.0 Band Neutrophils % (Manual) 6 Lymphocytes % (Manual) 1 L 10.0-50.0 Monocytes % (Manual) 6 0-12 Eosinophils % (Manual) 0 0-7 Basophils % (Manual) 0 0.0-2.0 Metamyelocytes % (manual) 1 Myelocytes % (Manual) 1 Promyelocytes % (Manual) 0 Blast Cells % (Manual) 0 Reactive Lymphocytes 0 Platelet Estimate Decreased Anisocytosis (manual) Slight Lactic Acid Level 1.8 0.4-2.0 mmol/L Troponin I High Sensitivity 21 </=34 ng/L Problems(with codes): (1) Sepsis (2) Generalized weakness (3) Acute renal failure (4) Contact dermatitis (5) Rhabdomyolysis (6) Cellulitis of both lower extremities (7) Dermatitis Plan/Recommendation ASSESSMENT AND PLAN: ID Problem List: \-- Diabetes mellitus, type 2, new onset, untreated \-- Poor living conditions (mold, dust, mice) \-- Diffuse dermatitis/rash \-- Lower extremity cellulitis \-- Recurrent sepsis with polymicrobial bacteremia and wound infection \-- Penicillin allergy \-- History of left ovarian tumor, status post removal Assessment Ms. Ma is a 79 year old female with new onset type 2 diabetes mellitus, not taking any medications at home, living in poor conditions with exposure to mold, dust, and mice. She was recently hospitalized (May 20) for severe dermatitis and lower extremity cellulitis, noted to be covered in stool at home, with leukocytosis and hypotension on admission. Initial cultures showed gram positive cocci (chains and clusters) and gram negative rods, treated empirically with vancomycin and cefepime, later deescalated to ceftriaxone. After a brief stay at a rehab facility, she was discharged home on oral antibiotics but now returns with persistent fever (101.3F), significant leukocytosis (WBC 33.8), and a diffuse erythematous rash involving upper/lower extremities and back. Exam is notable for right lower extremity non-pitting edema and mild scaling, as well as evidence of ongoing diffuse dermatitis. She presents with new cough with yellow phlegm. Current laboratory evaluation reveals: -Persistent leukocytosis (WBC up to 33.8) -Platelets: 125 (was 272 previously) -Sodium: 147 -BUN: 30, Creatinine: 1.24 (baseline 0.71) -Lactic acid and CRP mildly elevated -Hemoglobin A1c: 7.3 (was 8.9) Cultures: -Blood: Positive for Enterobacter cloacae, Acromobacter xylosoxidans, and Enterococcus faecalis -Acromobacter: sensitive to Bactrim, Zosyn -Enterococcus: ampicillin sensitive -Enterobacter: sensitive to Bactrim, levofloxacin, gentamicin, ertapenem, ciprofloxacin, ceftazidime, cefepime; also sensitive to Zosyn -Prior culture: Streptococcus oralis and Staph epidermidis in same bottle, thought to be skin twan contaminants Given the patients severe penicillin allergy, coverage with vancomycin and cefepime was initiated, but due to resistance and sensitivity patterns, plan is to discontinue these and switch to meropenem (ertapenem insufficient for Enterococcus). Plan: \-- Discontinue vancomycin and cefepime; initiate meropenem to cover wound and blood culture isolates considering sensitivities and allergy \-- Recommend transfer to care home facility for continued IV antibiotics and monitoring \-- Monitor WBC, platelets, renal function and clinical status closely \-- If/when improvement, consider transition to oral levofloxacin, but IV therapy preferred for sepsis control \-- Continue topical triamcinolone cream for diffuse dermatitis/rash \-- Nystatin powder for raquel involvement in the groin/sacral areas \-- Glycemic monitoring; diabetes remains untreated, but infection/sepsis is priority \-- Supportive care (hydration, monitor for end-organ dysfunction from sepsis) \-- 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 Updates may be added as addenda at the bottom (or top) of this note. Thank you for your consult. Infectious Diseases will continue to follow. Please contact for any questions or concerns. Mary Corado M.D. [facility] Ph: ? Teams text: [email or web address] Electronically signed by: Mary Corado MD, 07/07/2025 \ History: The patient's chart and medications were reviewed in detail and the patient was seen and examined. History obtained from: patient Ms. Ma is a 79 year old female with past medical history of new onset type 2 diabetes (untreated), history of left ovarian tumor status post removal, no alcohol use, no IV drug use. She lives in a home with reported mold, dust, and rodent infestation. She was admitted on May 20 for lower extremity cellulitis and dermatitis, then transferred to rehab for antibiotics, later went home. Now re-admitted with persistent fever, cough with yellowish sputum, diffuse rash, leukocytosis, and ongoing right lower extremity cellulitis. Review of Systems: A complete 10-system review of systems was completed and negative except as noted in the HPI or here. ROS: -CONSTITUTIONAL: Reports fever and chills. Denies weight loss. -HEENT: Denies changes in vision and hearing. -RESPIRATORY: New cough with yellow phlegm. -CV: Denies chest pain and palpitations. -GI: Denies abdominal pain, nausea, vomiting, or diarrhea. -: Denies dysuria or urinary frequency. -MSK: Diffuse rash. No myalgia or lee joint pain. -SKIN: Reports diffuse rash over extremities, back; mild desquamation, non- pitting edema RLE. -NEUROLOGICAL: Denies headache or syncope. -PSYCHIATRIC: Denies mood changes, anxiety, or depression. Past Medical History: Type 2 diabetes mellitus, new onset History of left ovarian tumor, status post removal Dermatitis Past Surgical History: Left ovarian tumor, status post removal Home Medications: Not taking any medications at home, including no therapy for diabetes. Allergies: Penicillin (nature of reaction not specified) Family History: Not detailed in provided transcript. Social History: Lives in poor environment (mold, dust, mice) No alcohol use No IV drug use No tobacco use detailed No current sexual activity noted Objective: Vital Signs on Arrival: Temp: 101.3 F BP: 116/68 Pulse: 122 Resp: 17 SpO2: 90% on room air Most Recent Vital Signs: Not detailed beyond admission set. Admission Weight: Not provided in transcript. Physical Exam: General: NAD Neck: Supple. No masses. HEENT: PERRL. Normal lids and conjunctiva. Moist mucous membranes. Oropharynx without lesions, exudates or excessive erythema. Normal appearance of the external aspects of the nose and ears. Heart: Regular rhythm, normal rate. No murmur. No lower extremity edema. Lungs: Normal respiratory effort. Clear to auscultation bilaterally. No wheezes. No crackles. Abdomen: Soft. Non-tender. Non-distended. No masses or abdominal hernia. Msk: No digital cyanosis. Normal strength and tone in all 4 limbs. Skin: Diffuse erythematous rash upper/lower extremities and back; mild desquamation lower extremities, especially shins downward. Right lower extremity warm, non-pitting edema. Neuro: Alert. No facial droop or slurred speech. Extra-ocular movements intact. Sensation intact to soft touch in all 4 limbs. Psych: Appropriate mood. Full affect. Oriented to person, place, time, and situation. Lines: Active Lines None specified in transcript. Diagnostic Studies: Available diagnostic studies were reviewed personally. Significant relevant results and findings are outlined below or addressed in the Assessment and Plan above. Pertinent Laboratory Findings: -WBC: up to 33.8 (previous 4.1), persistent leukocytosis -Platelets: 125 (was 272 previously) -Sodium: 147 -BUN: 30, Creatinine: 1.24 (baseline 0.71) -Lactic acid: 1.8 -CRP: 2.36 (elevated) -Hemoglobin: 12.4 (stable) -Hemoglobin A1c: 7.3 (prior 8.9) Pertinent Microbiology: -Blood culture positive for Enterobacter cloacae, Acromobacter xylosoxidans, Enterococcus faecalis -Prior cultures with possible skin twan contaminants (Streptococcus oralis, staphylococcus epidermidis) Imaging: Not provided in transcript. Electronically signed by: Mary Corado MD, 07/07/2025 Plan discussed with: Patient MARY CORADO MD Jul 07, 2025 14:27
[2025-07-07] MEDS: MEROPENEM 1GM IVPB 50 ML IV SCH (21:41)
[2025-07-08] VITALS (8 sets, daily range): BP systolic 93–132; BP diastolic 44–65; PULSE 71–99; RESP 12–19; TEMP 36.9; O2SAT 87–95
[2025-07-08] MEDS ORDERED: VANCOMYCIN 1GM/250ML KIT 250 ML IV SCH (04:00)
[2025-07-08 07:21] LABS: Hematocrit 31.4 % (36.0-46.0); Hemoglobin 10.1 g/dL (12.2-16.2); Mean Corpuscular Hemoglobin 28.7 pg (28.0-32.0); Mean Corpuscular Volume 89.3 fL (80.0-100.0); Nucleated Red Blood Cells % 0.2 %
[2025-07-08 07:23] LABS: Alanine Aminotransferase 19 U/L (7-40); Alkaline Phosphatase 63 U/L (46-116); Anion Gap 7 (5-15); BUN/Creatinine Ratio 28.6 (10.0-20.0); Blood Urea Nitrogen 22 mg/dL (9-23); Carbon Dioxide 28 mmol/L (20-31); Sodium 143 mmol/L (136-145)
[2025-07-08 07:24] LABS: Bilirubin, Total 0.3 mg/dL (0.2-1.0)
[2025-07-08 07:27] LABS: Albumin 2.6 g/dL (3.2-4.8); Calcium 7.5 mg/dL (8.7-10.4); Chloride 108 mmol/L (98-107); Glucose 134 mg/dL (74-106); Potassium 3.5 mmol/L (3.5-5.1); Total Protein 5.1 g/dL (5.7-8.2)
[2025-07-08] MEDS: ALPRAZolam 0.25 MG TAB PO PRN (10:22)
--- NOTE | 2025-07-08 18:20 | DVHDS2 ---
New Physician D'charge PN Admitting Diagnosis Admitting Diagnosis found down at home Discharge Diagnosis sepsis pna chronic wound recent bacteremia Operations or Procedures none Reason(s) For Hospitalization Surgery Hospital Course 79 F who comes to ER after wellness check at home and was found on the floor with poor living conditions and infestation with apparently rats and fecal excrement. SHe was recently discharged after she refused to go to SNF and demanded to go home just a few days when she was hospitalized for staph/strep bacteremia, klebsiella uti and enterobacter.enterococcus wound infection. When she came back today her WBC was 30k and thus she was readmitted started on broad spectrum IV ABx and fluids and ID saw her. CT chest showed multifocal pna possible aspiration. Her blood cultures were negative this hospitalization and she was treated with IV merrem as recommended by ID based off the cultures from few days prior when she was here. Her WBC trended down to 14k and chemistry panel normalized. Repeat BCx were negative and thus midline was ordered and ID recommended merrem 1 g TID x 2 weeks. Patient to be discharged to SNF this time and spoke to and updated daughter jose. She will receive IV Abx merrem as recommended via midline. [facility] to arrange for SNF bed and transport. Treatment Plan Discharge Condition of Discharge Good Disposition [facility] Facility Discharge Instructions Diet: Consistent carbohydrate, Cardiac 2g Na,low cholest Activity: No Restrictions, As Tolerated Medications: see med sheet Follow Up Care Follow Up/Referral: pcp Discharge Statement: "Patient was advised to return to the ER or call 911 if any headaches, dizziness, shortness of breath, chest pain, abdominal pain, bleeding, fevers, or worsening of medical condition. Patient was counseled about treatment plan, medications, possible side effects, patientverbalized understanding. All questions were answered to the best of my ability. This discharge took greater then 30 minutes in planning, reviewing documentation, counseling the patient, and discussing with other team members." AIME GIFFORD MD Jul 08, 2025 18:20
--- NOTE | 2025-07-11 17:48 | DVHPN2 ---
Consult Progress Note Date Seen: Jul 08, 2025 Objective medications Current Medications Medications Dose Ordered Sig/Karmen Route Start Time Stop Time Status Last Admin Dose Admin Vancomycin HCl 250 ml @ 250 mls/hr Q12H IV 07/07/25 01:00 UNV Vancomycin HCl 0 ml @ 0 mls/hr UD IV 07/07/25 09:15 Cancel Vancomycin HCl 250 ml @ 200 mls/hr Q24H IV 07/08/25 04:00 Cancel laboratory and microbiology Laboratory Tests 07/08/25 05:33 Test 07/08/25 05:33 Range/Units Serum Glucose 134 H 74-106 mg/dL MARY IBARRA MD Jul 11, 2025 17:48
== END 2025-07-08 17:45 | DRG 871 ==
LOC: EDBD 22:37 → ER 22:43 → OVERFLOW 07-07 01:39 → TELE-CENTR 07-07 15:26
PROVIDERS: ADMIT Hospitalist; ATTEND Hospitalist
PROC: 05HF33Z Insertion of Infusion Device into Left Cephalic Vein, Percutaneous Approach (ICD-10-PCS; principal; 2025-07-08)
PROC: B54NZZA Ultrasonography of Left Upper Extremity Veins, Guidance (ICD-10-PCS; 2025-07-08)
DX: A41.9 Sepsis, unspecified organism (principal); J15.69 Pneumonia due to other Gram-negative bacteria; J15.9 Unspecified bacterial pneumonia; N17.0 Acute kidney failure with tubular necrosis; L03.116 Cellulitis of left lower limb; L03.115 Cellulitis of right lower limb; E11.620 Type 2 diabetes mellitus with diabetic dermatitis; Z88.0 Allergy status to penicillin; Z88.8 Allergy status to other drugs, medicaments and biological substances; Z79.899 Other long term (current) drug therapy; Z80.8 Family history of malignant neoplasm of other organs or systems; Z80.1 Family history of malignant neoplasm of trachea, bronchus and lung; Z87.440 Personal history of urinary (tract) infections; L30.9 Dermatitis, unspecified
CPT/HCPCS: 36415; 71045; 71250; 80048; 80053; 80061; 81001; 82962; 83605; 84484; 85007; 85025; 85027; 87040; 87081; 93005; 99291; G0378; J0692; J1815; J2185; J3480